=== PATIENT | female | born 1985 | race Caucasian/White ===

== ENCOUNTER 2017-07-05 15:27 | Emergency (ER) | payer BC ==
[~2017-07-05] VITALS: Ht 157.5 cm; Wt 56.5 kg
[~2017-07-05 15:27] MED LIST: CHLO10CA6 PO; CITA10TA84 PO; FAMO-96 PO; IBUP400T22 PO; LOPE2CAP PO; LORA-444 PO; LORA1TAB PO; OMEP40CA3 PO; ONDA4TAB35 PO; ONDA4TAB8 PO; RANI150T9 PO
[2017-07-05 15:30] VITALS: Ht 157.5 cm; Wt 56.5 kg
--- NOTE | 2017-07-05 21:13 | ERD ---
ER Documentation Chief Complaint Date/Time DATE: 07/05/17 TIME: 21:09 Chief Complaint heavy drinking x 1 week "doesn't feel good" HPI 31-year-old female presents to the ER for feeling shaky after she stopped drinking. Last drink was yesterday. She denies any nausea or vomiting currently. She says that usually when she goes to the ER for alcohol withdrawal as they put an IV in her and give her Ativan. She has had no fevers or chills. She is not having any pain currently ROS All systems reviewed and are negative except as per history of present illness. Medications Home Meds Active Scripts Citalopram Hydrobromide* (Citalopram Hydrobromide*) 10 Mg Tablet, 10 MG PO DAILY , #6 TAB Prov:RUFUS DIAZ 05/22/16 Ondansetron Hcl* (Zofran* ODT) 4 mg -ODT Tab.disper, 4 MG PO Q6 Y for NAUSEA AND /OR VOMITING, #10 TAB Prov:RUFUS DIAZ 05/22/16 Ranitidine Hcl* (Zantac*) 150 Mg Tablet, 150 MG PO BID Y for EPIGASTRIC PAIN, # 30 TAB Prov:RUFUS DIAZ 05/22/16 Lorazepam* (Lorazepam*) 1 Mg Tablet, 1 MG PO Q8H Y for ANXIETY, #10 TAB Prov:DEVYN CABAN DO 05/12/16 Omeprazole* (Prilosec*) 40 Mg Capsule.dr, 40 MG PO DAILY, #30 CAP Prov:VINCENT CABANSTYADIRA Thakkar DO 05/12/16 Ondansetron Hcl* (Zofran* ODT) 4 mg -ODT Tab.disper, 4 MG PO Q6 Y for NAUSEA AND /OR VOMITING, #10 TAB Prov:VINCENT CABANSTYADIRA Thakkar DO 05/12/16 Ondansetron Hcl* (Zofran*) 4 Mg Tablet, 4 MG PO Q6H for NAUSEA AND/OR VOMITING, #30 TAB Prov:GABRIELLE MANRIQUEZ PA-C 04/26/16 Ibuprofen* (Motrin*) 400 Mg Tab, 400 MG PO Q6, #30 TAB Prov:JONATHON BRITT PA-C 04/05/16 Famotidine* (Pepcid*) 20 Mg Tablet, 20 MG PO BID for 4 Days, TAB Prov:JONATHON BRITT PA-C 04/05/16 Ondansetron Hcl* (Zofran* ODT) 4 mg -ODT Tab.disper, 4 MG PO Q6 Y for NAUSEA AND /OR VOMITING, #10 TAB Prov:JONATHON BRITT PA-C 04/05/16 Lorazepam* (Lorazepam*) 1 Mg Tablet, 1 MG PO Q8H Y for ANXIETY, #10 TAB Prov:DEVYN CABAN DO 03/11/16 Ranitidine Hcl* (Zantac*) 150 Mg Tablet, 150 MG PO BID, #60 TAB Prov:ABIGAIL JONES 03/09/16 Chlordiazepoxide* (Chlordiazepoxide*) 10 Mg Capsule, 10 MG PO TID, #60 CAP Prov:ABIGAIL JONES 03/09/16 Loperamide Hcl* (Imodium*) 2 Mg Capsule, 2 MG PO .AFTER EA LOOSE BM Y for DIARRHEA, #10 TAB Prov:IHSAN WOMACK MD 02/21/16 Ondansetron Hcl* (Zofran* ODT) 4 mg -ODT Tab.disper, 4 MG PO Q6 Y for NAUSEA AND /OR VOMITING, #10 TAB Prov:IHSAN WOMACK MD 02/21/16 Reported Medications Lorazepam* (Ativan*) 2 Mg Tablet, 2 MG PO Q8 Y for AGITATION/ANXIETY, TAB 02/20/16 Allergies Allergies: Coded Allergies: hydrocodone bit (Verified Allergy, Severe, 02/20/16) morphine (Verified Allergy, Intermediate, SOB , RASH, 02/20/16) PMhx/Soc History of Surgery: No Anesthesia Reaction: No Hx Neurological Disorder: No Hx Respiratory Disorders: No Hx Cardiac Disorders: No Hx Psychiatric Problems: Yes (anxiety, panic attack) Hx Miscellaneous Medical Probl: Yes (CHRONIC ALCOHOLIC PANCREATITIS, ovarian cyst) Hx Alcohol Use: No Hx Substance Use: No Hx Tobacco Use: Yes Physical Exam Vitals Vital Signs Date Time Temp Pulse Resp B/P Pulse Ox O2 Delivery O2 Flow Rate FiO2 07/05/17 15:30 97.9 114 22 130/82 97 Physical Exam Const: [] No distress, sitting comfortably in the chair, calm Head: Atraumatic Eyes: Normal Conjunctiva ENT: Normal External Ears, Nose and Mouth. Neck: Full range of motion..~ No meningismus. Resp: Clear to auscultation bilaterally Cardio: Regular rate and rhythm, no murmurs Skin: No petechiae or rashes Ext: No cyanosis, or edema Neur: Awake and alert and oriented 3, no focal deficits Psych: Normal Mood and Affect Procedures/MDM Very well-appearing young adult female comes emergency room with expectations of IV Ativan. She was observed in the emergency room for 5-1/2 hours without signs of shakiness, no vomiting. I did spend time speaking with her about alcohol cessation. Sugar that she should get IV Ativan because she is going to ERs and gotten before including this ER. Explained to her that we save IV narcotics for patients in need of them. She currently has stable vital signs, no shaking, no hallucinations. I feel safe discharging her with instructions for primary care follow-up. I am also providing outpatient detox facilities. Departure Diagnosis: Primary Impression: Alcoholic intoxication Condition: Stable Patient Instructions: Alcohol Intoxication Referrals: GAVI FRANCISCO (PCP) Additional Instructions: Call your primary care doctor TOMORROW for an appointment during the next 1-2 days.See the doctor sooner or return here if your condition worsens before your appointment time. SANDI JETER DO Jul 05, 2017 21:13
[2017-07-05 21:14] VITALS: BP 119/82; PULSE 99; RESP 20
== END 2017-07-05 21:18 | disposition home or self-care (01) ==
LOC: E/R 15:27
DX: F10.129 Alcohol abuse with intoxication, unspecified (principal); Z87.891 Personal history of nicotine dependence
CPT/HCPCS: 99282

== ENCOUNTER 2017-07-21 13:33 | Emergency (ER) | payer BC ==
[~2017-07-21] VITALS: Ht 154.9 cm; Wt 55.5 kg
[2017-07-21 13:35] VITALS: Ht 154.9 cm; Wt 55.5 kg
[2017-07-21] MEDS ORDERED: ONDANSETRON 4 MG INJ IV STA (15:02)
[2017-07-21] MEDS ORDERED: FAMOTIDINE 20 MG INJ IV STA (15:02)
[2017-07-21] MEDS ORDERED: SOD CHLORIDE 0.9% 1,000 ML IV STA (15:02)
--- NOTE | 2017-07-21 15:27 | ERD ---
ER Documentation Chief Complaint Date/Time DATE: 07/21/17 TIME: 15:24 Chief Complaint shaky , chest pressure ,had been drinking x 5 days HPI Patient is a 32-year-old female with history of alcohol abuse who reports chest pain in the setting of heavy drinking for the last 5 days. She states that the pain began yesterday. It was gradual onset, sharp, substernal in the lower sternal region. It radiates to her back. She denies shortness of breath. She denies cough. She denies fever. She reports vomiting several times without blood or coffee-ground emesis. She denies dark stools. She denies abdominal pain. ROS All systems reviewed and are negative except as per history of present illness. Medications Home Meds Active Scripts Famotidine* (Pepcid*) 20 Mg Tablet, 20 MG PO BID for 4 Days, TAB Prov:LINDSAY HAHN MD 07/21/17 Reported Medications Lorazepam* (Lorazepam*) 1 Mg Tablet, 1 MG PO BID Y for ANXIETY, #30 TAB LAST TIME PATIENT TAKE HER MEDS A WEEK AGO 07/21/17 Discontinued Reported Medications Lorazepam* (Ativan*) 2 Mg Tablet, 2 MG PO Q8 Y for AGITATION/ANXIETY, TAB 02/20/16 Discontinued Scripts Citalopram Hydrobromide* (Citalopram Hydrobromide*) 10 Mg Tablet, 10 MG PO DAILY , #6 TAB Prov:RUFUS DIAZ 05/22/16 Ondansetron Hcl* (Zofran* ODT) 4 mg -ODT Tab.disper, 4 MG PO Q6 Y for NAUSEA AND /OR VOMITING, #10 TAB Prov:RUFUS DIAZ 05/22/16 Ranitidine Hcl* (Zantac*) 150 Mg Tablet, 150 MG PO BID Y for EPIGASTRIC PAIN, # 30 TAB Prov:RUFUS DIAZ 05/22/16 Lorazepam* (Lorazepam*) 1 Mg Tablet, 1 MG PO Q8H Y for ANXIETY, #10 TAB Prov:DEVYN CABAN DO 05/12/16 Omeprazole* (Prilosec*) 40 Mg Capsule.dr, 40 MG PO DAILY, #30 CAP Prov:DEVYN CABAN DO 05/12/16 Ondansetron Hcl* (Zofran* ODT) 4 mg -ODT Tab.disper, 4 MG PO Q6 Y for NAUSEA AND /OR VOMITING, #10 TAB Prov:DEVYN CABAN DO 05/12/16 Ondansetron Hcl* (Zofran*) 4 Mg Tablet, 4 MG PO Q6H for NAUSEA AND/OR VOMITING, #30 TAB Prov:GABIRELLE MANRIQUEZ PA-C 04/26/16 Ibuprofen* (Motrin*) 400 Mg Tab, 400 MG PO Q6, #30 TAB Prov:JONATHON BRITT PA-C 04/05/16 Famotidine* (Pepcid*) 20 Mg Tablet, 20 MG PO BID for 4 Days, TAB Prov:JONATHON BRITT PA-C 04/05/16 Ondansetron Hcl* (Zofran* ODT) 4 mg -ODT Tab.disper, 4 MG PO Q6 Y for NAUSEA AND /OR VOMITING, #10 TAB Prov:JONATHON BRITT PA-C 04/05/16 Lorazepam* (Lorazepam*) 1 Mg Tablet, 1 MG PO Q8H Y for ANXIETY, #10 TAB Prov:DEVYN CABAN DO 03/11/16 Ranitidine Hcl* (Zantac*) 150 Mg Tablet, 150 MG PO BID, #60 TAB Prov:ABIGAIL JONES 03/09/16 Chlordiazepoxide* (Chlordiazepoxide*) 10 Mg Capsule, 10 MG PO TID, #60 CAP Prov:ABIGAIL JONES 03/09/16 Loperamide Hcl* (Imodium*) 2 Mg Capsule, 2 MG PO .AFTER EA LOOSE BM Y for DIARRHEA, #10 TAB Prov:IHSAN WOMACK MD 02/21/16 Ondansetron Hcl* (Zofran* ODT) 4 mg -ODT Tab.disper, 4 MG PO Q6 Y for NAUSEA AND /OR VOMITING, #10 TAB Prov:IHSAN WOMACK MD 02/21/16 Allergies Allergies: Coded Allergies: hydrocodone bit (Verified Allergy, Severe, 07/21/17) morphine (Verified Allergy, Intermediate, SOB , RASH, 07/21/17) PMhx/Soc Past medical history: Alcohol abuse Past surgical history: None Social history: Drinks alcohol heavily, denies tobacco or illicit drugs History of Surgery: No Anesthesia Reaction: No Hx Neurological Disorder: No Hx Respiratory Disorders: No Hx Cardiac Disorders: No Hx Psychiatric Problems: Yes (anxiety, panic attack) Hx Miscellaneous Medical Probl: Yes (CHRONIC ALCOHOLIC PANCREATITIS, ovarian cyst) Hx Alcohol Use: Yes (daily) Hx Substance Use: No Hx Tobacco Use: Yes Smoking Status: Never smoker FmHx Family History: No coronary disease, No diabetes Physical Exam Vitals Vital Signs Date Time Temp Pulse Resp B/P Pulse Ox O2 Delivery O2 Flow Rate FiO2 07/21/17 18:58 97.9 75 19 125/69 100 Room Air 07/21/17 15:10 98.1 83 16 106/89 97 Room Air 07/21/17 13:35 98.1 87 18 128/86 99 Physical Exam Const: Alert, no acute distress Head: Atraumatic Eyes: Normal Conjunctiva, no pallor, no icterus ENT: Normal External Ears, Nose and Mouth. Because membranes moist Neck: Full range of motion..~ No meningismus. No JVD Resp: Clear to auscultation bilaterally, no wheezes, no rales Cardio: Regular rate and rhythm, no murmurs. Left lower sternal chest wall tenderness. Abd: Soft, non tender, non distended. No guarding or rebound Skin: No petechiae or rashes Back: No midline or flank tenderness Ext: No cyanosis, or edema Neur: Awake and alert, cranial nerves II through XII intact bilaterally, strength and sensation full in 4 extremities. Psych: Normal Mood and Affect Result Diagram: 07/21/17 1530 07/21/17 1530 Results 24 hrs Laboratory Tests Test 07/21/17 15:20 07/21/17 15:30 Urine Color COLORLESS Urine Clarity CLEAR Urine pH 6.0 Urine Specific Petal 1.002 Urine Ketones NEGATIVEmg/dL Urine Nitrite NEGATIVEmg/dL Urine Bilirubin NEGATIVEmg/dL Urine Urobilinogen NEGATIVEmg/dL Urine Leukocyte Esterase NEGATIVELeu/ul Urine Hemoglobin NEGATIVEmg/dL Urine Glucose NEGATIVEmg/dL Urine Total Protein NEGATIVEmg/dl Urine Test NEGATIVE White Blood Count 8.710^3/ul Red Blood Count 5.1710^6/ul Hemoglobin 12.7g/dl Hematocrit 40.3% Mean Corpuscular Volume 77.9fl Mean Corpuscular Hemoglobin 24.6pg Mean Corpuscular Hemoglobin Concent 31.5g/dl Red Cell Distribution Width 18.6% Platelet Count 28958^3/UL Mean Platelet Volume 9.9fl Neutrophils % 54.6% Lymphocytes % 37.5% Monocytes % 6.0% Eosinophils % 0.7% Basophils % 0.6% Nucleated Red Blood Cells % 0.0/100WBC Neutrophils # (Manual) 4.810^3/ul Lymphocytes # 3.310^3/ul Monocytes # 0.510^3/ul Eosinophils # 0.110^3/ul Basophils # 0.110^3/ul Nucleated Red Blood Cells # 0.010^3/ul Sodium Level 148mmol/L Potassium Level 3.9mmol/L Chloride Level 102mmol/L Carbon Dioxide Level 25mmol/L Anion Gap 25 Blood Urea Nitrogen 5mg/dl Creatinine 0.66mg/dl Glucose Level 94mg/dl Calcium Level 9.1mg/dl Total Bilirubin 0.1mg/dl Direct Bilirubin 0.00mg/dl Indirect Bilirubin 0.1mg/dl Aspartate Amino Transf (AST/SGOT) 31IU/L Alanine Aminotransferase (ALT/SGPT) 24IU/L Alkaline Phosphatase 103IU/L Troponin I < 0.012ng/ml Total Protein 8.1g/dl Albumin 4.4g/dl Globulin 3.70g/dl Albumin/Globulin Ratio 1.18 Lipase 134U/L Current Medications Medications (Trade) Dose Ordered Sig/Dayanna Route PRN Reason Start Time Stop Time Status Last Admin Dose Admin Sodium Chloride (NS) 1,000 ml @ 1,000 mls/hr Q1H STAT IV 07/21/17 15:02 07/21/17 16:01 DC 07/21/17 15:17 Ondansetron HCl (Zofran Inj) 4 mg ONCE STAT IV 07/21/17 15:02 07/21/17 15:12 DC 07/21/17 15:16 Famotidine (Pepcid Iv) 20 mg ONCE STAT IV 07/21/17 15:02 07/21/17 15:12 DC 07/21/17 15:16 Lorazepam (Ativan) 1 mg ONCE ONCE IV 07/21/17 16:00 07/21/17 16:01 DC 07/21/17 15:57 Procedures/MDM EKG read by me: Time 1502, rate 72 Rhythm: Normal sinus Pope: Normal Intervals: Normal ST-T waves: no ischemic changes Ectopy: No Q-waves: V2 only Impression: Possible prior septal infarct versus lead placement. No ischemia or arrhythmia. MDM: Patient is a 32-year-old female who presents with sharp chest pain in the setting of recent alcohol binge. She also complains of several episodes of vomiting. She has benign labs, EKG and chest x-ray. There is no evidence for coronary ischemia. There are no features that are concerning for pulmonary embolism or aortic dissection. The patient does not have symptoms that are concerning for perforating ulcer or Boerhaave syndrome. She was given Ativan, IV fluids, and Pepcid and on reassessment her symptoms had largely resolved. I will discharge her with a prescription for Pepcid for possible alcoholic gastritis. I advised her on return precautions and the need to avoid alcohol. Departure Diagnosis: Primary Impression: Alcohol abuse Additional Impressions: Non-cardiac chest pain Nausea and vomiting Vomiting type: unspecified Vomiting Intractability: non-intractable Qualified Code: R11.2 - Non-intractable vomiting with nausea, unspecified vomiting type Condition: LINDSAY Sanders MD Jul 21, 2017 15:22
[2017-07-21 15:44] LABS: BASOPHIL # 0.1 10^3/ul (0.0-0.1); BASOPHILS % 0.6 % (0.0-2.0); EOSINOPHILS # 0.1 10^3/ul (0.0-0.5); EOSINOPHILS % 0.7 % (0.0-7.0); HEMATOCRIT 40.3 % (37.0-47.0); HEMOGLOBIN 12.7 g/dl (12.0-16.0); LYMPHOCYTES # 3.3 10^3/ul (0.8-2.9); LYMPHOCYTES % 37.5 % (15.0-51.0); MEAN CORPUSCULAR HEMOGLOBIN 24.6 pg (29.0-33.0); MEAN CORPUSCULAR HGB CONC 31.5 g/dl (32.0-37.0); MEAN CORPUSCULAR VOLUME 77.9 fl (82.0-101.0); MEAN PLATELET VOLUME 9.9 fl (7.4-10.4); MONOCYTE # 0.5 10^3/ul (0.3-0.9); NEUTROPHILS % 54.6 % (39.0-77.0); PLATELET COUNT 410 10^3/UL (140-415); RED BLOOD COUNT 5.17 10^6/ul (4.20-5.40); RED CELL DISTRIBUTION WIDTH 18.6 % (11.5-14.5); WHITE BLOOD COUNT 8.7 10^3/ul (4.8-10.8)
[2017-07-21 15:48] LABS: ADD UMIC NO; UR ASCORBIC ACID NEGATIVE (NEGATIVE); UR BILIRUBIN (Dip) NEGATIVE (NEGATIVE); UR BLOOD (Dip) NEGATIVE (NEGATIVE); UR CLARITY CLEAR (CLEAR); UR COLOR COLORLESS (YELLOW); UR GLUCOSE (Dip) NEGATIVE (NEGATIVE); UR KETONES (Dip) NEGATIVE (NEGATIVE); UR LEUKOCYTE ESTERASE (Dip) NEGATIVE Leu/ul (NEGATIVE); UR NITRITE (Dip) NEGATIVE (NEGATIVE); UR SPECIFIC GRAVITY (Dip) 1.002 (1.003-1.030); UR TOTAL PROTEIN (Dip) NEGATIVE (NEGATIVE); UR UROBILINOGEN (Dip) NEGATIVE (NEGATIVE)
[2017-07-21] MEDS ORDERED: LORAZEPAM 2 MG INJ IV ONE (16:00)
[2017-07-21 16:31] LABS: ALANINE AMINOTRANSFERASE 24 IU/L (13-69); ALBUMIN 4.4 g/dl (3.3-4.9); ALBUMIN/GLOBULIN RATIO 1.18; ALKALINE PHOSPHATASE 103 IU/L (42-121); ANION GAP 25 (8-16); ASPARTATE AMINO TRANSFERASE 31 IU/L (15-46); BILIRUBIN,INDIRECT 0.1 mg/dl (0-1.1); BILIRUBIN,TOTAL 0.1 mg/dl (0.2-1.3); BLOOD UREA NITROGEN 5 mg/dl (7-20); CARBON DIOXIDE 25 mmol/L (21-31); CHLORIDE 102 mmol/L (97-110); CREATININE 0.66 mg/dl (0.44-1.00); GLUCOSE 94 mg/dl (70-220); POTASSIUM 3.9 mmol/L (3.5-5.1); SODIUM 148 mmol/L (135-144); TOTAL PROTEIN 8.1 g/dl (6.1-8.1)
--- NOTE | 2017-07-21 16:37 | RADRPT ---
PROCEDURE: Chest Radiograph. CLINICAL INDICATION: Abdominal pain TECHNIQUE: Single frontal chest radiograph. COMPARISON: None available FINDINGS: The cardiomediastinal silhouette is within normal limits. No infiltrate or effusion is seen. Th e bones are intact. IMPRESSION: 1. Unremarkable chest radiograph. RPTAT: KK .Alphonso Henson MD, Date Time Electronically viewed and signed by .Alphonso Henson MD, on 07/21/2017 16:36 .B/
[2017-07-21 16:44] LABS: TROPONIN-I < 0.012 ng/ml (0.00-0.12)
[2017-07-21] MEDS ORDERED: LORA1TAB PO (16:47)
[2017-07-21 17:33] LABS: CALCIUM 9.1 mg/dl (8.4-10.2)
[2017-07-21] MEDS ORDERED: FAMO-96 PO (18:03)
[2017-07-21 18:58] VITALS: BP 125/69; PULSE 75; RESP 19; TEMP 97.9
== END 2017-07-21 18:59 | disposition home or self-care (01) ==
LOC: E/R 13:33
DX: F10.10 Alcohol abuse, uncomplicated (principal); R11.2 Nausea with vomiting, unspecified; Z87.891 Personal history of nicotine dependence
CPT/HCPCS: 36415; 71010; 80053; 81003; 83690; 84484; 84703; 85025; 93005; 96374; 96375; 99285; J2060; J2405; J7030; Z7610

== ENCOUNTER 2017-08-11 09:32 | Emergency (ER) | payer BC ==
[~2017-08-11] VITALS: Ht 149.9 cm; Wt 55.5 kg
[~2017-08-11 09:32] MED LIST changes: -CHLO10CA6 PO; -CITA10TA84 PO; -IBUP400T22 PO; -LOPE2CAP PO; -LORA-444 PO; -OMEP40CA3 PO; -ONDA4TAB35 PO; -ONDA4TAB8 PO; -RANI150T9 PO
[2017-08-11 09:36] VITALS: Ht 149.9 cm; Wt 55.5 kg
[2017-08-11] MEDS ORDERED: FAMOTIDINE 20 MG INJ IV STA (10:55)
[2017-08-11] MEDS ORDERED: ONDANSETRON 4 MG INJ IV STA (10:55)
[2017-08-11] MEDS ORDERED: DEXTROSE 5% 1,000 ML IV ONE (11:00)
[2017-08-11] MEDS ORDERED: LORAZEPAM 2 MG INJ IV ONE ×2 (11:00→12:00)
--- NOTE | 2017-08-11 11:01 | ERD ---
ER Documentation Chief Complaint Date/Time DATE: 08/11/17 TIME: 10:58 Chief Complaint mid chest pain radiates to the back , vomitting x 5 days HPI 32-year-old female history of alcohol abuse, relapse comes in with chest pain going to her back, nausea, vomiting for the past 4 days after an episode of binge drinking. She has a history of alcohol abuse, states that she went to rehab and when she left she she began drinking again and states that her last drink was yesterday. She has a prescription for Ativan but she states she has not been taking this so far. ROS All systems reviewed and are negative except as per history of present illness. Medications Home Meds Active Scripts Ondansetron (Ondansetron Odt) 4 Mg Tab.rapdis, 4 MG PO Q6H Y for NAUSEA AND/OR VOMITING, #10 TAB Prov:SHE JOHNSON PA-C 08/11/17 Ranitidine Hcl* (Zantac*) 150 Mg Tablet, 150 MG PO BID Y for EPIGASTRIC PAIN, # 30 TAB Prov:SHE JOHNSON PA-C 08/11/17 Famotidine* (Pepcid*) 20 Mg Tablet, 20 MG PO BID for 4 Days, TAB Prov:LINDSAY KING MD 07/21/17 Reported Medications Lorazepam* (Lorazepam*) 1 Mg Tablet, 1 MG PO BID Y for ANXIETY, #30 TAB LAST TIME PATIENT TAKE HER MEDS A WEEK AGO 07/21/17 Allergies Allergies: Coded Allergies: hydrocodone bit (Verified Allergy, Severe, 07/21/17) morphine (Verified Allergy, Intermediate, SOB , RASH, 07/21/17) PMhx/Soc History of Surgery: No Anesthesia Reaction: No Hx Neurological Disorder: No Hx Respiratory Disorders: No Hx Cardiac Disorders: No Hx Psychiatric Problems: Yes (anxiety, panic attack) Hx Miscellaneous Medical Probl: Yes (CHRONIC ALCOHOLIC PANCREATITIS, ovarian cyst) Hx Alcohol Use: Yes (daily) Hx Substance Use: No Hx Tobacco Use: Yes Physical Exam Vitals Vital Signs Date Time Temp Pulse Resp B/P Pulse Ox O2 Delivery O2 Flow Rate FiO2 08/11/17 13:31 110 18 113/76 99 Room Air 08/11/17 09:36 98.2 107 19 134/91 98 Physical Exam General: Well-developed, well-nourished. The patient appears in no acute distress. HEENT: Head is normocephalic, atraumatic. No scleral icterus Neck: Supple. Nontender. Lungs: Clear to auscultation. Normal air movement. Heart: Regular rate and rhythm. S1 and S2 are normal. No murmurs, gallops, or rubs. Abdomen: Soft, nontender, nondistended. Bowel sounds are normoactive. Extremities: No clubbing or cyanosis. Normal pulses. Moving extremities x 4. No weakness. Neurologic: Alert and oriented 3. No focal deficits. Skin: Normal turgor. No rash or lesions. Result Diagram: 08/11/17 1107 08/11/17 1107 Results 24 hrs Laboratory Tests Test 08/11/17 11:07 White Blood Count 9.910^3/ul Red Blood Count 5.1010^6/ul Hemoglobin 12.9g/dl Hematocrit 39.8% Mean Corpuscular Volume 78.0fl Mean Corpuscular Hemoglobin 25.3pg Mean Corpuscular Hemoglobin Concent 32.4g/dl Red Cell Distribution Width 14.7% Platelet Count 79197^3/UL Mean Platelet Volume 10.0fl Neutrophils % 62.2% Lymphocytes % 28.5% Monocytes % 8.0% Eosinophils % 0.3% Basophils % 0.7% Nucleated Red Blood Cells % 0.0/100WBC Neutrophils # 6.210^3/ul Lymphocytes # 2.810^3/ul Monocytes # 0.810^3/ul Eosinophils # 0.010^3/ul Basophils # 0.110^3/ul Nucleated Red Blood Cells # 0.010^3/ul Sodium Level 141mmol/L Potassium Level 4.5mmol/L Chloride Level 101mmol/L Carbon Dioxide Level 29mmol/L Anion Gap 16 Blood Urea Nitrogen 10mg/dl Creatinine 0.66mg/dl Glucose Level 110mg/dl Calcium Level 9.3mg/dl Total Bilirubin 0.4mg/dl Direct Bilirubin 0.00mg/dl Indirect Bilirubin 0.4mg/dl Aspartate Amino Transf (AST/SGOT) 33IU/L Alanine Aminotransferase (ALT/SGPT) 26IU/L Alkaline Phosphatase 95IU/L Troponin I < 0.012ng/ml Total Protein 7.3g/dl Albumin 4.2g/dl Globulin 3.10g/dl Albumin/Globulin Ratio 1.35 Lipase 114U/L Current Medications Medications (Trade) Dose Ordered Sig/Dayanna Route PRN Reason Start Time Stop Time Status Last Admin Dose Admin Ondansetron HCl (Zofran Inj) 4 mg ONCE STAT IV 08/11/17 10:55 08/11/17 10:56 DC 08/11/17 11:25 Famotidine (Pepcid Iv) 20 mg ONCE STAT IV 08/11/17 10:55 08/11/17 10:56 DC 08/11/17 11:22 Lorazepam 1 mg 1 mg ONCE ONCE IV 08/11/17 11:00 08/11/17 11:01 DC 08/11/17 11:21 Dextrose (D5W) 1,000 ml @ 1,000 mls/hr Q1H ONCE IV 08/11/17 11:00 08/11/17 11:59 DC 08/11/17 11:25 Lorazepam (Ativan) 1 mg ONCE ONCE IV 08/11/17 12:00 08/11/17 12:01 DC 08/11/17 12:18 urine preg: NEG Procedures/MDM 12-lead EKG(interpreted by supervising physician): Dr. King Rate/Rhythm: Normal Sinus Rhythm, rate of 80 QRS, ST, T-waves: No changes consistent w/ acute ischemia, no intervals, no dysrhythmias, no ectopy Impression: No evidence of ischemia or arrhythmia Medical decision makin-year-old female comes in with a four-day history of alcohol binging and she stopped drinking yesterday coming in with alcohol withdrawal. Patient was given Ativan intravenously, Pepcid, and Zofran and states she is feeling much better. All labs are normal, chest pain does not appear to be cardiac, troponin is negative. Patient will be sent home with ranitidine, Zofran, she states that she has Ativan which she may take as needed at home for the next 2 days. Departure Diagnosis: Primary Impression: Withdrawal symptoms, alcohol Additional Impression: Chest pain Condition: SHE Borrero PA-C Aug 11, 2017 11:01
[2017-08-11 11:25] LABS: BASOPHIL # 0.1 10^3/ul (0.0-0.1); BASOPHILS % 0.7 % (0.0-2.0); EOSINOPHILS % 0.3 % (0.0-7.0); HEMATOCRIT 39.8 % (37.0-47.0); HEMOGLOBIN 12.9 g/dl (12.0-16.0); LYMPHOCYTES # 2.8 10^3/ul (0.8-2.9); LYMPHOCYTES % 28.5 % (15.0-51.0); MEAN CORPUSCULAR HEMOGLOBIN 25.3 pg (29.0-33.0); MEAN CORPUSCULAR HGB CONC 32.4 g/dl (32.0-37.0); MONOCYTE # 0.8 10^3/ul (0.3-0.9); NEUTROPHIL # 6.2 10^3/ul (1.6-7.5); NEUTROPHILS % 62.2 % (39.0-77.0); PLATELET COUNT 367 10^3/UL (140-415); RED CELL DISTRIBUTION WIDTH 14.7 % (11.5-14.5); WHITE BLOOD COUNT 9.9 10^3/ul (4.8-10.8)
[2017-08-11 11:55] LABS: ALANINE AMINOTRANSFERASE 26 IU/L (13-69); ALBUMIN 4.2 g/dl (3.3-4.9); ALBUMIN/GLOBULIN RATIO 1.35; ALKALINE PHOSPHATASE 95 IU/L (42-121); ANION GAP 16 (8-16); ASPARTATE AMINO TRANSFERASE 33 IU/L (15-46); BILIRUBIN,INDIRECT 0.4 mg/dl (0-1.1); BILIRUBIN,TOTAL 0.4 mg/dl (0.2-1.3); BLOOD UREA NITROGEN 10 mg/dl (7-20); CALCIUM 9.3 mg/dl (8.4-10.2); CARBON DIOXIDE 29 mmol/L (21-31); CHLORIDE 101 mmol/L (97-110); CREATININE 0.66 mg/dl (0.44-1.00); GLUCOSE 110 mg/dl (70-220); POTASSIUM 4.5 mmol/L (3.5-5.1); SODIUM 141 mmol/L (135-144); TOTAL PROTEIN 7.3 g/dl (6.1-8.1)
[2017-08-11 12:09] LABS: TROPONIN-I < 0.012 ng/ml (0.00-0.12)
[2017-08-11] MEDS ORDERED: ONDA4TAB14 PO (13:28)
[2017-08-11] MEDS ORDERED: RANI150T9 PO (13:28)
[2017-08-11 13:31] VITALS: BP 113/76; PULSE 110; RESP 18
== END 2017-08-11 14:26 | disposition home or self-care (01) ==
LOC: FTE 09:32
DX: F10.230 Alcohol dependence with withdrawal, uncomplicated (principal); R11.2 Nausea with vomiting, unspecified; Z87.891 Personal history of nicotine dependence
CPT/HCPCS: 36415; 80053; 83690; 84484; 85025; 93005; 96361; 96374; 96375; 99284; J2060; J2405; J7070; Z7610

== ENCOUNTER 2017-09-02 07:11 | Emergency (ER) | payer BC ==
[~2017-09-02] VITALS: Wt 54.0 kg
[~2017-09-02 07:11] MED LIST changes: +ONDA4TAB14 PO; +RANI150T9 PO
[2017-09-02] MEDS ORDERED: ONDANSETRON 4 MG INJ IV STA (07:33)
[2017-09-02] MEDS ORDERED: SOD CHLORIDE 0.9% 1,000 ML IV STA (07:33)
[2017-09-02 07:56] LABS: BASOPHIL # 0.1 10^3/ul (0.0-0.1); BASOPHILS % 0.6 % (0.0-2.0); EOSINOPHILS % 0.1 % (0.0-7.0); HEMATOCRIT 43.4 % (37.0-47.0); HEMOGLOBIN 13.9 g/dl (12.0-16.0); LYMPHOCYTES # 3.2 10^3/ul (0.8-2.9); LYMPHOCYTES % 28.2 % (15.0-51.0); MEAN CORPUSCULAR VOLUME 77.9 fl (82.0-101.0); MONOCYTE # 0.8 10^3/ul (0.3-0.9); MONOCYTES % 6.8 % (0.0-11.0); NEUTROPHIL # 7.3 10^3/ul (1.6-7.5); PLATELET COUNT 523 10^3/UL (140-415); RED BLOOD COUNT 5.57 10^6/ul (4.20-5.40); RED CELL DISTRIBUTION WIDTH 13.2 % (11.5-14.5); WHITE BLOOD COUNT 11.4 10^3/ul (4.8-10.8)
[2017-09-02] MEDS ORDERED: LIDOCAINE/MYLANTA 40 ML BTL PO ONE (08:00)
[2017-09-02 08:08] LABS: ADD UMIC YES; UR ASCORBIC ACID NEGATIVE (NEGATIVE); UR BACTERIA FEW /HPF (NONE SEEN); UR BILIRUBIN (Dip) NEGATIVE (NEGATIVE); UR BLOOD (Dip) NEGATIVE (NEGATIVE); UR CLARITY SLIGHTLY CLOUDY (CLEAR); UR COLOR YELLOW (YELLOW); UR GLUCOSE (Dip) NEGATIVE (NEGATIVE); UR KETONES (Dip) TRACE mg/dL (NEGATIVE); UR LEUKOCYTE ESTERASE (Dip) TRACE Leu/ul (NEGATIVE); UR MUCUS MODERATE /HPF (NONE SEEN); UR NITRITE (Dip) NEGATIVE (NEGATIVE); UR RBC 2 /HPF (0-5); UR SPECIFIC GRAVITY (Dip) 1.028 (1.003-1.030); UR SQUAMOUS EPITHELIAL CELL MODERATE /HPF (FEW); UR TOTAL PROTEIN (Dip) 2+ mg/dl (NEGATIVE); UR UROBILINOGEN (Dip) NEGATIVE (NEGATIVE)
[2017-09-02 08:17] LABS: ALANINE AMINOTRANSFERASE 21 IU/L (13-69); ALBUMIN 4.7 g/dl (3.3-4.9); ALBUMIN/GLOBULIN RATIO 1.27; ALKALINE PHOSPHATASE 117 IU/L (42-121); ANION GAP 20 (8-16); ASPARTATE AMINO TRANSFERASE 22 IU/L (15-46); BILIRUBIN,INDIRECT 0.6 mg/dl (0-1.1); BILIRUBIN,TOTAL 0.6 mg/dl (0.2-1.3); BLOOD UREA NITROGEN 11 mg/dl (7-20); CALCIUM 9.1 mg/dl (8.4-10.2); CARBON DIOXIDE 29 mmol/L (21-31); CHLORIDE 93 mmol/L (97-110); CREATININE 0.69 mg/dl (0.44-1.00); GLUCOSE 147 mg/dl (70-220); POTASSIUM 4.1 mmol/L (3.5-5.1); SODIUM 138 mmol/L (135-144); TOTAL PROTEIN 8.4 g/dl (6.1-8.1)
[2017-09-02 08:31] LABS: TROPONIN-I < 0.012 ng/ml (0.00-0.12)
[2017-09-02] MEDS ORDERED: ANTA250 PO (08:42)
[2017-09-02] MEDS ORDERED: ONDA4TAB11 PO (08:42)
[2017-09-02] MEDS ORDERED: RANI150T9 PO (08:44)
[2017-09-02 08:54] VITALS: BP 124/93; PULSE 98; RESP 17
--- NOTE | 2017-09-02 08:57 | ERD ---
ER Documentation Chief Complaint Date/Time DATE: 09/02/17 TIME: 08:47 Chief Complaint ETOH INTAKE, STATES ALL DAY X5 DAYS, FAST HEART BEAT HPI This 32-year-old female is emergency room feeling palpitations. States that she has been drinking for 5 days. Has a history of alcohol abuse. Also states that she has some substernal central chest pain that feels like a sharp burning pain. Mild shortness of breath. Is also had nausea. Last drink was 5 hours ago. Patient has 4 children. Has never suffered from delirium tremens. ROS All systems reviewed and are negative except as per history of present illness. Medications Home Meds Active Scripts Ranitidine Hcl* (Zantac*) 150 Mg Tablet, 150 MG PO BID, #60 TAB Prov:CORONASANDI DO 09/02/17 Disulfiram (Antabuse) 250 Mg Tablet, 250 MG PO DAILY, #30 TAB Take when alcohol is out of your system completely in order to assist you goals of alcohol avoidance. Prov:SANDI JETER DO 09/02/17 Ondansetron (Zofran Odt) 4 Mg Tab.rapdis, 4 MG PO Q6, #10 Prov:CORONASANDI DO 09/02/17 Ondansetron (Ondansetron Odt) 4 Mg Tab.rapdis, 4 MG PO Q6H Y for NAUSEA AND/OR VOMITING, #10 TAB Prov:SHE JOHNSON PA-C 08/11/17 Ranitidine Hcl* (Zantac*) 150 Mg Tablet, 150 MG PO BID Y for EPIGASTRIC PAIN, # 30 TAB Prov:SHE JOHNSON PA-C 08/11/17 Famotidine* (Pepcid*) 20 Mg Tablet, 20 MG PO BID for 4 Days, TAB Prov:LINDSAY HAHN MD 07/21/17 Reported Medications Lorazepam* (Lorazepam*) 1 Mg Tablet, 1 MG PO BID Y for ANXIETY, #30 TAB LAST TIME PATIENT TAKE HER MEDS A WEEK AGO 07/21/17 Allergies Allergies: Coded Allergies: hydrocodone bit (Verified Allergy, Severe, 07/21/17) morphine (Verified Allergy, Intermediate, SOB , RASH, 07/21/17) PMhx/Soc History of Surgery: No Anesthesia Reaction: No Hx Neurological Disorder: No Hx Respiratory Disorders: No Hx Cardiac Disorders: No Hx Psychiatric Problems: Yes (anxiety, panic attack) Hx Miscellaneous Medical Probl: Yes (CHRONIC ALCOHOLIC PANCREATITIS, ovarian cyst) Hx Alcohol Use: Yes (daily) Hx Substance Use: No Hx Tobacco Use: Yes (2-3 cigarettes) Smoking Status: Current every day smoker Physical Exam Vitals Vital Signs Date Time Temp Pulse Resp B/P Pulse Ox O2 Delivery O2 Flow Rate FiO2 09/02/17 07:16 97.5 132 17 126/78 97 Physical Exam Const: [] No obvious distress. Head: Atraumatic Eyes: Normal Conjunctiva ENT: Normal External Ears, Nose and Mouth. Neck: Full range of motion..~ No meningismus. Resp: Clear to auscultation bilaterally Cardio: Regular tachycardia, no murmurs Abd: Soft, non tender, non distended. Normal bowel sounds Skin: No petechiae or rashes Back: No midline or flank tenderness Ext: No cyanosis, or edema Neur: Awake and alert and oriented 3, no focal deficits Psych: Normal Mood and Affect Result Diagram: 09/02/1718 09/02/1718 Results 24 hrs Laboratory Tests Test 09/02/17 07:18 09/02/17 07:48 White Blood Count 11.410^3/ul Red Blood Count 5.5710^6/ul Hemoglobin 13.9g/dl Hematocrit 43.4% Mean Corpuscular Volume 77.9fl Mean Corpuscular Hemoglobin 25.0pg Mean Corpuscular Hemoglobin Concent 32.0g/dl Red Cell Distribution Width 13.2% Platelet Count 92717^3/UL Mean Platelet Volume 10.0fl Neutrophils % 64.0% Lymphocytes % 28.2% Monocytes % 6.8% Eosinophils % 0.1% Basophils % 0.6% Nucleated Red Blood Cells % 0.0/100WBC Neutrophils # 7.310^3/ul Lymphocytes # 3.210^3/ul Monocytes # 0.810^3/ul Eosinophils # 0.010^3/ul Basophils # 0.110^3/ul Nucleated Red Blood Cells # 0.010^3/ul Sodium Level 138mmol/L Potassium Level 4.1mmol/L Chloride Level 93mmol/L Carbon Dioxide Level 29mmol/L Anion Gap 20 Blood Urea Nitrogen 11mg/dl Creatinine 0.69mg/dl Glucose Level 147mg/dl Calcium Level 9.1mg/dl Total Bilirubin 0.6mg/dl Direct Bilirubin 0.00mg/dl Indirect Bilirubin 0.6mg/dl Aspartate Amino Transf (AST/SGOT) 22IU/L Alanine Aminotransferase (ALT/SGPT) 21IU/L Alkaline Phosphatase 117IU/L Troponin I < 0.012ng/ml Total Protein 8.4g/dl Albumin 4.7g/dl Globulin 3.70g/dl Albumin/Globulin Ratio 1.27 Lipase 97U/L Urine Color YELLOW Urine Clarity SLIGHTLY CLOUDY Urine pH 5.0 Urine Specific [place] 1.028 Urine Ketones TRACEmg/dL Urine Nitrite NEGATIVEmg/dL Urine Bilirubin NEGATIVEmg/dL Urine Urobilinogen NEGATIVEmg/dL Urine Leukocyte Esterase TRACELeu/ul Urine Microscopic RBC 2/HPF Urine Microscopic WBC 2/HPF Urine Squamous Epithelial Cells MODERATE/HPF Urine Bacteria FEW/HPF Urine Mucus MODERATE/HPF Urine Hemoglobin NEGATIVEmg/dL Urine Glucose NEGATIVEmg/dL Urine Total Protein 2+mg/dl Current Medications Medications (Trade) Dose Ordered Sig/Dayanna Route PRN Reason Start Time Stop Time Status Last Admin Dose Admin Sodium Chloride (NS) 1,000 ml @ 1,000 mls/hr Q1H STAT IV 09/02/17 07:33 09/02/17 08:32 DC 09/02/17 07:57 Ondansetron HCl (Zofran Inj) 8 mg ONCE STAT IV 09/02/17 07:33 09/02/17 07:37 DC 09/02/17 08:05 Miscellaneous Medication (Gi Cocktail (2)) 40 ml ONCE ONCE PO 09/02/17 08:00 09/02/17 08:01 DC 09/02/17 08:05 Procedures/MDM Atypical chest pain after drinking alcohol last night. He was given a liter of fluid and prior to receiving it her cardia had resolved. Signs of cardiac ischemia. She was given Zofran IV. Is also given a GI cocktail which reduced her chest pain. Laboratories show no significant liver or metabolic abnormalities. No signs of infection. She is feeling better. I am going to discharge her with Zantac and Zofran. Also discharging her with Antabuse in order to help her with her goal of stopping drinking alcohol, especially as she has 4 children. Return precautions are given to the ER and primary care follow- up with instructions to obtain outpatient echocardiogram are given EKG interpretation: Sinus rhythm rate of 97, normal axis, no ST or T-wave changes concerning for acute ischemia. Slightly shortened ID at 108 ms. residential monitor interpretation: Normal sinus rhythm without arrhythmia Departure Diagnosis: Primary Impression: Dehydration Additional Impressions: Alcohol abuse Atypical chest pain Condition: Stable Patient Instructions: Nausea, Chest Pain, Noncardiac , Alcohol Abuse Referrals: COMMUNITY CLINICS YOU HAVE RECEIVED A MEDICAL SCREENING EXAM AND THE RESULTS INDICATE THAT YOU DO NOT HAVE A CONDITION THAT REQUIRES URGENT TREATMENT IN THE EMERGENCY DEPARTMENT. FURTHER EVALUATION AND TREATMENT OF YOUR CONDITION CAN WAIT UNTIL YOU ARE SEEN IN YOUR DOCTORS OFFICE WITHIN THE NEXT 1-2 DAYS. IT IS YOUR RESPONSIBILITY TO MAKE AN APPOINTMENT FOR FOL-UP CARE. IF YOU HAVE A PRIMARY DOCTOR --you should call your primary doctor and schedule an appointment IF YOU DO NOT HAVE A PRIMARY DOCTOR YOU CAN CALL OUR PHYSICIAN REFERRAL HOTLINE AT IF YOU CAN NOT AFFORD TO SEE A PHYSICIAN YOU CAN CHOSE FROM THE FOLLOWING [facility] [address] [facility]. [facility] [address] [facility] [address] [facility] [facility] [address]. [facility] [address] [facility]. [facility]. [address] Additional Instructions: Call your primary care doctor TOMORROW for an appointment during the next 2-3 days. Get a referral of an ECHOCARDIOGRAM in the next two weeks to check cardiac function. See the doctor sooner or return here if your condition worsens before your appointment time. SANDI JETER DO Sep 02, 2017 08:57
== END 2017-09-02 09:40 | disposition home or self-care (01) ==
LOC: E/R 07:11
DX: E86.0 Dehydration (principal); F10.10 Alcohol abuse, uncomplicated; R07.89 Other chest pain; F17.210 Nicotine dependence, cigarettes, uncomplicated
CPT/HCPCS: 36415; 80053; 81001; 83690; 84484; 85025; 93005; 96374; 99284; J2405; J7030; Z7610

== ENCOUNTER 2017-09-21 21:55 | Emergency (ER) | payer SELFPAY ==
[~2017-09-21 21:55] MED LIST changes: +ANTA250 PO; +ONDA4TAB11 PO
== END 2017-09-21 23:40 | disposition left against medical advice (07) ==
LOC: E/R 21:55
DX: Z53.21 Procedure and treatment not carried out due to patient leaving prior to being seen by health care provider (principal)

== ENCOUNTER 2017-09-22 05:25 | Emergency (ER) | payer BC ==
[~2017-09-22] VITALS: Ht 157.5 cm; Wt 56.0 kg
[2017-09-22 05:32] VITALS: Ht 157.5 cm; Wt 56.0 kg
[2017-09-22] MEDS ORDERED: LORAZEPAM 1 MG TAB PO ONE (06:30)
--- NOTE | 2017-09-22 07:21 | ERD ---
ER Documentation Chief Complaint Chief Complaint Pt has been drinking x 5 days, last drink 09/21/17. "I want IV and ativan" HPI Patient is a 32-year-old female with a history of panic and anxiety who presents saying that she needs IV fluids and Ativan. She said that she was drinking for the past 5 days. She says that she drinks beer only. She says that she ran out of Ativan at home. She said that her last drink was at 9 PM last night. Upon review of old medical record she has multiple visits to the ER for various complaints. She says that her primary doctor is a Dr. Devi. ROS All systems reviewed and are negative except as per history of present illness. Medications Home Meds Active Scripts Ondansetron (Zofran Odt) 4 Mg Tab.rapdis, 4 MG PO Q6, #10 Prov:SANDI JETER DO 09/02/17 Famotidine* (Pepcid*) 20 Mg Tablet, 20 MG PO BID for 4 Days, TAB Prov:LINDSAY HAHN MD 07/21/17 Reported Medications Lorazepam* (Lorazepam*) 1 Mg Tablet, 1 MG PO BID Y for ANXIETY, #30 TAB LAST TIME PATIENT TAKE HER MEDS A WEEK AGO 07/21/17 Discontinued Scripts Ranitidine Hcl* (Zantac*) 150 Mg Tablet, 150 MG PO BID, #60 TAB Prov:SANDI JETER DO 09/02/17 Disulfiram (Antabuse) 250 Mg Tablet, 250 MG PO DAILY, #30 TAB Take when alcohol is out of your system completely in order to assist you goals of alcohol avoidance. Prov:SANDI JETER DO 09/02/17 Ondansetron (Ondansetron Odt) 4 Mg Tab.rapdis, 4 MG PO Q6H Y for NAUSEA AND/OR VOMITING, #10 TAB Prov:SHE JOHNSON PA-C 08/11/17 Ranitidine Hcl* (Zantac*) 150 Mg Tablet, 150 MG PO BID Y for EPIGASTRIC PAIN, # 30 TAB Prov:SHE JOHNSON PA-C 08/11/17 Allergies Allergies: Coded Allergies: hydrocodone bit (Verified Allergy, Severe, 09/22/17) morphine (Verified Allergy, Intermediate, SOB , RASH, 09/22/17) PMhx/Soc History of Surgery: No Anesthesia Reaction: No Hx Neurological Disorder: No Hx Respiratory Disorders: No Hx Cardiac Disorders: No Hx Psychiatric Problems: Yes (anxiety, panic attack,ETOH abuse) Hx Miscellaneous Medical Probl: Yes (CHRONIC ALCOHOLIC PANCREATITIS, ovarian cyst) Hx Alcohol Use: Yes (daily,last used this morning) Hx Substance Use: No Hx Tobacco Use: Yes (2-3 cigarettes) Smoking Status: Current every day smoker FmHx Family History: diabetes Physical Exam Vitals Vital Signs Date Time Temp Pulse Resp B/P Pulse Ox O2 Delivery O2 Flow Rate FiO2 09/22/17 05:32 98.1 96 18 122/85 98 Physical Exam Const: No acute distress Head: Atraumatic Eyes: Normal Conjunctiva ENT: Normal External Ears, Nose and Mouth. Neck: Full range of motion..~ No meningismus. Resp: Clear to auscultation bilaterally Cardio: Regular rate and rhythm, no murmurs Abd: Soft, non tender, non distended. Normal bowel sounds Skin: No petechiae or rashes Back: No midline or flank tenderness Ext: No cyanosis, or edema Neur: Awake and alert, no tremors Psych: Normal Mood and Affect Results 24 hrs Current Medications Medications (Trade) Dose Ordered Sig/Dayanna Route PRN Reason Start Time Stop Time Status Last Admin Dose Admin Lorazepam (Ativan) 1 mg ONCE ONCE PO 09/22/17 06:30 09/22/17 06:30 DC 09/22/17 06:21 Procedures/MDM Patient is a 32-year-old female who presents with symptoms of alcohol withdrawal. Her vital signs are normal and there is no sign of acute delirium tremens at this time. I told her that we will not give her IV fluids for IV Ativan in this case. She was offered Ativan 1 mg by mouth but I would not give her refills of this medication as it is a controlled substance and I do believe there is an element of abuse here given her multiple visits to the emergency department. The patient was instructed to follow-up with outpatient detox facilities and I did provide a list for her. The patient can return for any worsening symptoms. She is not in acute delirium tremens at this time. She does not require further workup or admission to the hospital at this time. Departure Diagnosis: Primary Impression: Alcohol withdrawal syndrome Complication of substance-induced condition: uncomplicated Qualified Code: F10.230 - Alcohol withdrawal syndrome without complication Condition: Fair Patient Instructions: Alcohol Withdrawal Referrals: [facility] Abuse [facility] Additional Instructions: FOLLOW UP WITH YOUR PRIMARY CARE PHYSICIAN TOMORROW.Return to this facility if you are not improving as expected. BROWN MIKE MD Sep 22, 2017 07:21
== END 2017-09-22 06:29 | disposition left against medical advice (07) ==
LOC: E/R 05:25
DX: F10.230 Alcohol dependence with withdrawal, uncomplicated (principal); F17.210 Nicotine dependence, cigarettes, uncomplicated
CPT/HCPCS: 99283; Z7610

== ENCOUNTER 2017-09-28 20:59 | Emergency (ER) | payer BC ==
[~2017-09-28] VITALS: Ht 149.9 cm; Wt 53.5 kg
[~2017-09-28 20:59] MED LIST changes: -ANTA250 PO; -ONDA4TAB14 PO; -RANI150T9 PO
[2017-09-28 21:06] VITALS: Ht 149.9 cm; Wt 53.5 kg
[2017-09-28] MEDS ORDERED: FAMOTIDINE 20 MG INJ IV STA (23:34)
[2017-09-28] MEDS ORDERED: ONDANSETRON 4 MG INJ IV STA (23:34)
[2017-09-28] MEDS ORDERED: SOD CHLORIDE 0.9% 1,000 ML IV STA (23:34)
[2017-09-29] MEDS ORDERED: LORAZEPAM 2 MG INJ IV ONE
--- NOTE | 2017-09-29 00:48 | RADRPT ---
PROCEDURE: Thoracic Spine. CLINICAL INDICATION: 32 years of age, female. Back pain. TECHNIQUE: AP, lateral and swimmers views of the thoracic spine. COMPARISON: None available. FINDINGS: There are 12 rib-bearing thoracic vertebra. Thoracic spine is visualized from T1 to L3 in the front al projection and from T1-L3 in the lateral projection. Superior thoracic spine is visualized throug h composite shadows on the swimmer's view. No acute fracture is identified. There is a curvature of the lumbar spine convex left centered on L3. There is a mild curvature of th e mid-thoracic spine convex right. The thoracic kyphosis is preserved without spondylolisthesis. Neg ative for spondylolisthesis. Negative for traumatic subluxation. Negative for abnormal paravertebral soft tissue swelling. Normal bone mineralization. Vertebral body heights are maintained. No suspicious bone lesions are id entified. Negative for significant degenerative change. The visualized lungs are clear. They are age indeterminate fracture deformities of the posterior rig ht third and fourth ribs. IMPRESSION: 1. Curvature lumbar spine convex left centered on L3 with mild compensatory curvature of thoracic s pine convex right. 2. Negative for significant degenerative change. No acute fractures are identified in the thoracic spine. 3. Age indeterminate fracture deformities of the posterior right third and fourth ribs. RPTAT: HCTS Physician Zain Date Time Electronically viewed and signed by Physician Zain on 09/29/2017 00:48 CS/
[2017-09-29] MEDS ORDERED: ONDA-43 PO (00:57)
[2017-09-29] MEDS ORDERED: CEPH-443 PO (00:57)
[2017-09-29 01:38] VITALS: BP 111/66; PULSE 92; RESP 18; TEMP 97.9
--- NOTE | 2017-09-29 01:40 | ERD ---
ER Documentation Chief Complaint Chief Complaint BACK PAIN W/ VOMITING X1 WEEK. HPI This is a 32-year-old female presents to the ER with her aunt for nausea and vomiting secondary to alcohol abuse. Patient states that she is an alcoholic, and went on a drinking binge that started on Tuesday. Patient states that she drinks about 20 beers a day and her last drink was this morning. Patient states that now she feels shaky and has had severe nausea and nonbilious nonbloody vomiting. Patient denies any problems urinating. Patient lives at home with her aunt and stated she went to the [facility] for help. Patient started drinking when she was 25 years old. She also smokes cigarettes. She has a past medical 3 of anxiety and panic attacks. Takes lorazepam for this. Is additionally complaining of mid back pain, she denies any trauma. She denies any urinary bowel incontinence. She denies any saddle like anesthesia. Patient denies any IV drug use. ROS 12 point review of systems was done, all negative except per HPI. Medications Home Meds Active Scripts Cephalexin* (Keflex*) 500 Mg Capsule, 500 MG PO BID for 7 Days, CAP Prov:ARLENE MULLEN 09/29/17 Ondansetron Hcl* (Zofran*) 4 Mg Tab, 4 MG PO Q4H Y for NAUSEA AND OR VOMITING for 3 Days, TAB Prov:ARLENE MULLEN 09/29/17 Ondansetron (Zofran Odt) 4 Mg Tab.rapdis, 4 MG PO Q6, #10 Prov:SANDI JETER DO 09/02/17 Famotidine* (Pepcid*) 20 Mg Tablet, 20 MG PO BID for 4 Days, TAB Prov:LINDSAY HAHN MD 07/21/17 Reported Medications Lorazepam* (Lorazepam*) 1 Mg Tablet, 1 MG PO BID Y for ANXIETY, #30 TAB LAST TIME PATIENT TAKE HER MEDS A WEEK AGO 07/21/17 Discontinued Scripts Ranitidine Hcl* (Zantac*) 150 Mg Tablet, 150 MG PO BID, #60 TAB Prov:SANDI JETER DO 09/02/17 Disulfiram (Antabuse) 250 Mg Tablet, 250 MG PO DAILY, #30 TAB Take when alcohol is out of your system completely in order to assist you goals of alcohol avoidance. Prov:SANDI JETER DO 09/02/17 Ondansetron (Ondansetron Odt) 4 Mg Tab.rapdis, 4 MG PO Q6H Y for NAUSEA AND/OR VOMITING, #10 TAB Prov:SHE JOHNSON PA-C 08/11/17 Ranitidine Hcl* (Zantac*) 150 Mg Tablet, 150 MG PO BID Y for EPIGASTRIC PAIN, # 30 TAB Prov:SHE JOHNSON PA-C 08/11/17 Allergies Allergies: Coded Allergies: hydrocodone bit (Verified Allergy, Severe, 09/28/17) morphine (Verified Allergy, Intermediate, SOB , RASH, 09/28/17) PMhx/Soc Medical and Surgical Hx: pt denies Surgical Hx History of Surgery: No Anesthesia Reaction: No Hx Neurological Disorder: No Hx Respiratory Disorders: No Hx Cardiac Disorders: No Hx Psychiatric Problems: Yes (anxiety, panic attack,ETOH abuse) Hx Miscellaneous Medical Probl: Yes (CHRONIC ALCOHOLIC PANCREATITIS, ovarian cyst) Hx Alcohol Use: Yes (daily,last used this morning) Hx Substance Use: No Hx Tobacco Use: Yes (2-3 cigarettes) Smoking Status: Current every day smoker Physical Exam Vitals Vital Signs Date Time Temp Pulse Resp B/P Pulse Ox O2 Delivery O2 Flow Rate FiO2 09/28/17 21:06 98.8 113 20 120/76 98 Physical Exam GENERAL: The patient is well developed and appropriate for usual state of health , in no apparent distress. HEENT: Atraumatic. CHEST: Clear to auscultation bilaterally. There are no rales, wheezes or rhonchi. HEART: Regular rate and rhythm. No murmurs, clicks, rubs or gallops. ABDOMEN: Soft, nontender and nondistended. Good bowel sounds. No rebound or guarding. No gross peritonitis. No gross organomegaly or masses. No Hargrove sign or McBurney point tenderness. BACK: No midline or flank tenderness. Patient has some tenderness to palpation from T3- T5 NEURO: Alert and oriented. SKIN: There is no apparent rash or petechia. The skin is warm and dry. Result Diagram: 09/28/170 09/28/17 2350 Results 24 hrs Laboratory Tests Test 09/28/17 23:50 White Blood Count 8.210^3/ul Red Blood Count 5.1210^6/ul Hemoglobin 13.1g/dl Hematocrit 41.0% Mean Corpuscular Volume 80.1fl Mean Corpuscular Hemoglobin 25.6pg Mean Corpuscular Hemoglobin Concent 32.0g/dl Red Cell Distribution Width 13.6% Platelet Count 32938^3/UL Mean Platelet Volume 9.7fl Neutrophils % 50.0% Lymphocytes % 40.7% Monocytes % 7.5% Eosinophils % 0.9% Basophils % 0.5% Nucleated Red Blood Cells % 0.0/100WBC Neutrophils # 4.110^3/ul Lymphocytes # 3.310^3/ul Monocytes # 0.610^3/ul Eosinophils # 0.110^3/ul Basophils # 0.010^3/ul Nucleated Red Blood Cells # 0.010^3/ul Urine Color STRAW Urine Clarity CLEAR Urine pH 6.0 Urine Specific [place] 1.003 Urine Ketones NEGATIVEmg/dL Urine Nitrite NEGATIVEmg/dL Urine Bilirubin NEGATIVEmg/dL Urine Urobilinogen NEGATIVEmg/dL Urine Leukocyte Esterase 1+Catherine/ul Urine Microscopic RBC 1/HPF Urine Microscopic WBC 11/HPF Urine Squamous Epithelial Cells FEW/HPF Urine Bacteria FEW/HPF Urine Yeast (Budding) FEW/HPF Urine Hemoglobin NEGATIVEmg/dL Urine Glucose NEGATIVEmg/dL Urine Total Protein NEGATIVEmg/dl Sodium Level 145mmol/L Potassium Level 4.2mmol/L Chloride Level 102mmol/L Carbon Dioxide Level 30mmol/L Anion Gap 17 Blood Urea Nitrogen 7mg/dl Creatinine 0.66mg/dl Glucose Level 102mg/dl Calcium Level 9.2mg/dl Total Bilirubin 0.2mg/dl Direct Bilirubin 0.00mg/dl Indirect Bilirubin 0.2mg/dl Aspartate Amino Transf (AST/SGOT) 45IU/L Alanine Aminotransferase (ALT/SGPT) 25IU/L Alkaline Phosphatase 92IU/L Total Protein 7.9g/dl Albumin 4.2g/dl Globulin 3.70g/dl Albumin/Globulin Ratio 1.13 Lipase 219U/L Current Medications Medications (Trade) Dose Ordered Sig/Dayanna Route PRN Reason Start Time Stop Time Status Last Admin Dose Admin Sodium Chloride (NS) 1,000 ml @ 1,000 mls/hr Q1H STAT IV 09/28/17 23:34 09/29/17 00:33 DC 09/29/17 00:15 Ondansetron HCl (Zofran Inj) 4 mg ONCE STAT IV 09/28/17 23:34 09/28/17 23:37 DC 09/29/17 00:15 Famotidine (Pepcid Iv) 20 mg ONCE STAT IV 09/28/17 23:34 09/28/17 23:37 DC 09/29/17 00:15 Lorazepam (Ativan) 1 mg ONCE ONCE IV 09/29/17 00:00 09/29/17 00:01 DC 09/29/17 00:15 Procedures/MDM This is a 32-year-old female presents to the ER with nausea and vomiting secondary to alcohol use. Patient did have some tachycardia, and she was given fluids this is likely secondary to vomiting. Patient did not have any signs of acute delirium tremens at this time. Patient was comfortably sleeping after treatment in the ER and remained well-appearing. Patient will be treated for urinary tract infection that was found on urinalysis, and she will be sent home with Loyd. Patient is to follow-up at the [facility] as soon as possible. Patient should return to the ER if symptoms worsen. I shared my medical decision making with the patient and with her aunt, they both understand and agree with plan. Departure Diagnosis: Primary Impression: UTI (urinary tract infection) Additional Impressions: Alcohol abuse Nausea & vomiting Condition: Stable Patient Instructions: Understanding Urinary Tract Infections (UTIs), Alcohol Addiction Additional Instructions: Call your primary care doctor TOMORROW for an appointment during the next 1-2 days.See the doctor sooner or return here if your condition worsens before your appointment time. ARLENE MULLEN Sep 29, 2017 01:40
== END 2017-09-29 01:40 | disposition home or self-care (01) ==
LOC: FTE 20:59
DX: N39.0 Urinary tract infection, site not specified (principal); F10.10 Alcohol abuse, uncomplicated; F17.210 Nicotine dependence, cigarettes, uncomplicated
CPT/HCPCS: 36415; 72072; 80053; 81001; 83690; 85025; 96374; 96375; 99284; J2060; J2405; J7030; Z7610

== ENCOUNTER 2017-10-03 11:06 | Emergency (ER) | payer BC ==
[~2017-10-03] VITALS: Ht 149.9 cm; Wt 58.7 kg
[~2017-10-03 11:06] MED LIST changes: +CEPH-443 PO; +ONDA-43 PO
[2017-10-03 11:12] VITALS: Ht 149.9 cm; Wt 58.7 kg
[2017-10-03] MEDS ORDERED: ONDANSETRON (ODT) 4 MG TAB ODT STA (13:03)
[2017-10-03] MEDS ORDERED: ACETAMINOPHEN 325 MG TAB PO ONE (13:30)
--- NOTE | 2017-10-03 13:57 | ERD ---
ER Documentation Chief Complaint Chief Complaint ABD PAIN WITH VOMITING SINCE LAST NIGHT HPI 32-year-old female with a history of alcoholic pancreatitis presents with mid abdominal pain and suprapubic abdominal pain with nausea vomiting that started last night. The patient describes constant pain that is sharp and moderate, worse after vomiting. She reports loose stools associated with this. She has not had any vomiting otherwise for the 2 times this morning. She denies fevers or chills. ROS All systems reviewed and are negative except as per history of present illness. Medications Home Meds Active Scripts Ondansetron (Ondansetron Odt) 4 Mg Tab.rapdis, 4 MG PO Q6H Y for NAUSEA AND/OR VOMITING, #10 TAB Prov:SHE JOHNSON PA-C 10/03/17 Cephalexin* (Keflex*) 500 Mg Capsule, 500 MG PO BID for 7 Days, CAP Prov:ARLENE MULLEN 09/29/17 Ondansetron Hcl* (Zofran*) 4 Mg Tab, 4 MG PO Q4H Y for NAUSEA AND OR VOMITING for 3 Days, TAB Prov:ARLENE MULLEN 09/29/17 Ondansetron (Zofran Odt) 4 Mg Tab.rapdis, 4 MG PO Q6, #10 Prov:SANDI JETER DO 09/02/17 Famotidine* (Pepcid*) 20 Mg Tablet, 20 MG PO BID for 4 Days, TAB Prov:LINDSAY HAHN MD 07/21/17 Reported Medications Lorazepam* (Lorazepam*) 1 Mg Tablet, 1 MG PO BID Y for ANXIETY, #30 TAB LAST TIME PATIENT TAKE HER MEDS A WEEK AGO 07/21/17 Allergies Allergies: Coded Allergies: hydrocodone bit (Verified Allergy, Severe, 09/28/17) morphine (Verified Allergy, Intermediate, SOB , RASH, 09/28/17) PMhx/Soc History of Surgery: No Anesthesia Reaction: No Hx Neurological Disorder: No Hx Respiratory Disorders: No Hx Cardiac Disorders: No Hx Psychiatric Problems: Yes (anxiety, panic attack,ETOH abuse) Hx Miscellaneous Medical Probl: Yes (CHRONIC ALCOHOLIC PANCREATITIS, ovarian cyst) Hx Alcohol Use: Yes (daily) Hx Substance Use: No Hx Tobacco Use: Yes (2-3 cigarettes) Smoking Status: Current every day smoker Physical Exam Vitals Vital Signs Date Time Temp Pulse Resp B/P Pulse Ox O2 Delivery O2 Flow Rate FiO2 10/03/17 11:12 98.2 78 18 130/86 99 Physical Exam General: Well-developed, well-nourished. The patient appears in no acute distress. HEENT: Head is normocephalic, atraumatic. No scleral icterus. Neck: Supple. Nontender. Lungs: Clear to auscultation. Normal air movement. Heart: Regular rate and rhythm. S1 and S2 are normal. No murmurs, gallops, or rubs. Abdomen: Soft, mid abdominal tenderness nondistended. Bowel sounds are normoactive. Masses, no hepatosplenomegaly, negative Hargrove sign, no McBurney' s tenderness. Extremities: No clubbing or cyanosis. Normal pulses. Moving extremities x 4. No weakness. Neurologic: Alert and oriented 3. No focal deficits. Skin: Normal turgor. No rash or lesions. Result Diagram: 10/03/17 1320 10/03/17 1320 Results 24 hrs Laboratory Tests Test 10/03/17 13:00 10/03/17 13:20 Urine Color STRAW Urine Clarity CLEAR Urine pH 8.0 Urine Specific [place] 1.004 Urine Ketones NEGATIVEmg/dL Urine Nitrite NEGATIVEmg/dL Urine Bilirubin NEGATIVEmg/dL Urine Urobilinogen NEGATIVEmg/dL Urine Leukocyte Esterase NEGATIVELeu/ul Urine Hemoglobin NEGATIVEmg/dL Urine Glucose NEGATIVEmg/dL Urine Total Protein NEGATIVEmg/dl White Blood Count 8.510^3/ul Red Blood Count 4.6910^6/ul Hemoglobin 12.1g/dl Hematocrit 38.9% Mean Corpuscular Volume 82.9fl Mean Corpuscular Hemoglobin 25.8pg Mean Corpuscular Hemoglobin Concent 31.1g/dl Red Cell Distribution Width 14.0% Platelet Count 35579^3/UL Mean Platelet Volume 10.1fl Neutrophils % 68.4% Lymphocytes % 24.2% Monocytes % 5.4% Eosinophils % 0.9% Basophils % 0.5% Nucleated Red Blood Cells % 0.0/100WBC Neutrophils # 5.810^3/ul Lymphocytes # 2.110^3/ul Monocytes # 0.510^3/ul Eosinophils # 0.110^3/ul Basophils # 0.010^3/ul Nucleated Red Blood Cells # 0.010^3/ul Sodium Level 141mmol/L Potassium Level 3.9mmol/L Chloride Level 101mmol/L Carbon Dioxide Level 30mmol/L Anion Gap 14 Blood Urea Nitrogen 6mg/dl Creatinine 0.84mg/dl Glucose Level 126mg/dl Calcium Level 9.3mg/dl Total Bilirubin 0.4mg/dl Direct Bilirubin 0.00mg/dl Indirect Bilirubin 0.4mg/dl Aspartate Amino Transf (AST/SGOT) 42IU/L Alanine Aminotransferase (ALT/SGPT) 27IU/L Alkaline Phosphatase 77IU/L Total Protein 7.7g/dl Albumin 4.5g/dl Globulin 3.20g/dl Albumin/Globulin Ratio 1.40 Lipase 288U/L Serum HCG, Qualitative NEGATIVE Current Medications Medications (Trade) Dose Ordered Sig/Dayanna Route PRN Reason Start Time Stop Time Status Last Admin Dose Admin Acetaminophen (Tylenol Tab) 650 mg ONCE ONCE PO 10/03/17 13:30 10/03/17 13:31 DC 10/03/17 13:27 Ondansetron HCl (Zofran Odt) 4 mg ONCE STAT ODT 10/03/17 13:03 10/03/17 13:04 DC 10/03/17 13:27 Procedures/MDM 32-year-old female with a history of alcohol abuse, pancreatitis presents with mid abdominal pain starting last night. She reports nausea vomiting, and she denies any recent alcohol abuse. Her labs are normal, no leukocytosis, anemia, electrolyte abnormalities, evidence of pancreatitis, urine is negative for or UTI. She was given Tylenol as well as Zofran, she had improvement of her symptoms and will be discharged home with Zofran. The patient does have a history of chronic abdominal pain, without evidence of surgical and acute abdominal process. Departure Diagnosis: Primary Impression: Abdominal pain Condition: SHE Borrero PA-C Oct 03, 2017 13:57
[2017-10-03] MEDS ORDERED: ONDA4TAB14 PO (14:22)
== END 2017-10-03 14:41 | disposition home or self-care (01) ==
LOC: FTE 11:06
DX: R10.9 Unspecified abdominal pain (principal); F17.210 Nicotine dependence, cigarettes, uncomplicated; R11.2 Nausea with vomiting, unspecified
CPT/HCPCS: 36415; 80053; 81003; 83690; 84703; 85025; 99283; Z7610

== ENCOUNTER 2017-10-12 15:43 | Emergency (ER) | payer BC ==
[~2017-10-12] VITALS: Ht 162.6 cm; Wt 120.0 kg
[~2017-10-12 15:43] MED LIST changes: +ONDA4TAB14 PO
[2017-10-12 15:51] VITALS: Ht 162.6 cm; Wt 120.0 kg
[2017-10-12] MEDS ORDERED: SOD CHLORIDE 0.9% 1,000 ML IV STA (17:04)
[2017-10-12] MEDS ORDERED: ONDANSETRON 4 MG INJ IV STA (17:04)
[2017-10-12] MEDS ORDERED: FAMOTIDINE 20 MG INJ IV STA (17:04)
[2017-10-12] MEDS ORDERED: LORAZEPAM 2 MG INJ IV STA (17:04)
[2017-10-12] MEDS ORDERED: THIAMINE 100 MG TAB PO STA (17:04)
[2017-10-12 17:28] LABS: BASOPHIL # 0.1 10^3/ul (0.0-0.1); BASOPHILS % 0.7 % (0.0-2.0); EOSINOPHILS # 0.1 10^3/ul (0.0-0.5); EOSINOPHILS % 0.5 % (0.0-7.0); HEMATOCRIT 41.1 % (37.0-47.0); HEMOGLOBIN 13.2 g/dl (12.0-16.0); LYMPHOCYTES # 3.7 10^3/ul (0.8-2.9); MEAN CORPUSCULAR HEMOGLOBIN 25.5 pg (29.0-33.0); MEAN CORPUSCULAR HGB CONC 32.1 g/dl (32.0-37.0); MEAN CORPUSCULAR VOLUME 79.5 fl (82.0-101.0); MONOCYTE # 0.8 10^3/ul (0.3-0.9); MONOCYTES % 7.8 % (0.0-11.0); NEUTROPHIL # 5.3 10^3/ul (1.6-7.5); NEUTROPHILS % 53.7 % (39.0-77.0); PLATELET COUNT 447 10^3/UL (140-415); RED BLOOD COUNT 5.17 10^6/ul (4.20-5.40); RED CELL DISTRIBUTION WIDTH 13.7 % (11.5-14.5); WHITE BLOOD COUNT 9.9 10^3/ul (4.8-10.8)
--- NOTE | 2017-10-12 17:38 | RADRPT ---
PROCEDURE: XR Chest. CLINICAL INDICATION: Chest pain. Altered level of consciousness. TECHNIQUE: Single frontal view. COMPARISON: 07/21/2017. FINDINGS: The lungs are clear. The heart size is normal. There is no pleural effusion. There is no pneumothorax. There are old healed fractures of the right third and fourth ribs. IMPRESSION: 1. Old healed fractures of the right third and fourth ribs. 2. Otherwise unremarkable chest radiograph. 3. No change from 07/21/2017. RPTAT: QQ .Gabriel Chan MD, MD Date Time Electronically viewed and signed by .Gabriel Chan MD, MD on 10/12/2017 17:38 .R/
--- NOTE | 2017-10-12 17:43 | ERD ---
ER Documentation Chief Complaint Chief Complaint ETOH withdrawal, been drinking x 7 days, stopped today HPI 32-year-old female with a history of alcoholism presenting to the ER with multiple complaints. She states that she has been drinking alcohol for the past 2 months. Her last drink was today about 3 hours ago. She is complaining of epigastric pain for the past 2 days and nausea with vomiting for the past week. She denies any hematemesis or coffee-ground vomit. No diarrhea or constipation. No associated fevers or chills. She complains of epigastric pain that is sharp, radiating to her back, 9 out of 10. She states that Ativan usually helps her stop drinking. She is requesting that today. ROS All systems reviewed and are negative except as per history of present illness. Medications Home Meds Active Scripts Lorazepam* (Ativan*) 2 Mg Tablet, 2 MG PO Q8 Y for CONTROL WITHDRAWAL SYMPTOMS, #10 TAB Prov:SERGEI OZUNA MD 10/12/17 Ondansetron (Ondansetron Odt) 4 Mg Tab.rapdis, 4 MG PO Q6H Y for NAUSEA AND/OR VOMITING, #10 TAB Prov:SHE JOHNSON PA-C 10/03/17 Cephalexin* (Keflex*) 500 Mg Capsule, 500 MG PO BID for 7 Days, CAP Prov:ARLENE MULLEN 09/29/17 Ondansetron Hcl* (Zofran*) 4 Mg Tab, 4 MG PO Q4H Y for NAUSEA AND OR VOMITING for 3 Days, TAB Prov:ARLENE MULLEN 09/29/17 Ondansetron (Zofran Odt) 4 Mg Tab.rapdis, 4 MG PO Q6, #10 Prov:SANDI JETER DO 09/02/17 Famotidine* (Pepcid*) 20 Mg Tablet, 20 MG PO BID for 4 Days, TAB Prov:LINDSAY HAHN MD 07/21/17 Reported Medications Lorazepam* (Lorazepam*) 1 Mg Tablet, 1 MG PO BID Y for ANXIETY, #30 TAB LAST TIME PATIENT TAKE HER MEDS A WEEK AGO 07/21/17 Allergies Allergies: Coded Allergies: hydrocodone bit (Verified Allergy, Severe, 09/28/17) morphine (Verified Allergy, Intermediate, SOB , RASH, 09/28/17) PMhx/Soc Medical and Surgical Hx: pt denies Surgical Hx History of Surgery: No Anesthesia Reaction: No Hx Neurological Disorder: No Hx Respiratory Disorders: No Hx Cardiac Disorders: No Hx Psychiatric Problems: Yes (anxiety, panic attack,ETOH abuse) Hx Miscellaneous Medical Probl: Yes (CHRONIC ALCOHOLIC PANCREATITIS, ovarian cyst) Hx Alcohol Use: Yes (daily) Hx Substance Use: No Hx Tobacco Use: Yes (2-3 cigarettes) FmHx Family History: No diabetes Physical Exam Vitals Vital Signs Date Time Temp Pulse Resp B/P Pulse Ox O2 Delivery O2 Flow Rate FiO2 10/12/17 20:00 89 18 110/72 98 Room Air 10/12/17 18:35 98.0 97 18 105/67 98 Room Air 10/12/17 15:51 98.0 110 20 128/84 99 Physical Exam Const: Laying in bed, in no apparent distress, nontoxic Head: Atraumatic Eyes: Normal Conjunctiva ENT: Normal External Ears, Nose and Mouth. Neck: Full range of motion..~ No meningismus. Resp: Clear to auscultation bilaterally Cardio: Regular rate and rhythm, no murmurs Abd: Soft, no minimal tenderness in the epigastric area without rebound or guarding. non distended. Normal bowel sounds Skin: No petechiae or rashes. no jaundice Back: No midline or flank tenderness Ext: No cyanosis, or edema Neur: Awake and alert Psych: Normal Mood and Affect Result Diagram: 10/12/17170910/12/171709 Results 24 hrs Laboratory Tests Test 10/12/17 17:10 White Blood Count 9.910^3/ul Red Blood Count 5.1710^6/ul Hemoglobin 13.2g/dl Hematocrit 41.1% Mean Corpuscular Volume 79.5fl Mean Corpuscular Hemoglobin 25.5pg Mean Corpuscular Hemoglobin Concent 32.1g/dl Red Cell Distribution Width 13.7% Platelet Count 60887^3/UL Mean Platelet Volume 10.0fl Neutrophils % 53.7% Lymphocytes % 37.0% Monocytes % 7.8% Eosinophils % 0.5% Basophils % 0.7% Nucleated Red Blood Cells % 0.0/100WBC Neutrophils # 5.310^3/ul Lymphocytes # 3.710^3/ul Monocytes # 0.810^3/ul Eosinophils # 0.110^3/ul Basophils # 0.110^3/ul Nucleated Red Blood Cells # 0.010^3/ul Sodium Level 144mmol/L Potassium Level 4.3mmol/L Chloride Level 99mmol/L Carbon Dioxide Level 28mmol/L Anion Gap 21 Blood Urea Nitrogen 8mg/dl Creatinine 0.67mg/dl Glucose Level 100mg/dl Calcium Level 8.9mg/dl Total Bilirubin 0.2mg/dl Direct Bilirubin 0.00mg/dl Indirect Bilirubin 0.2mg/dl Aspartate Amino Transf (AST/SGOT) 40IU/L Alanine Aminotransferase (ALT/SGPT) 21IU/L Alkaline Phosphatase 88IU/L Total Protein 8.0g/dl Albumin 4.7g/dl Globulin 3.30g/dl Albumin/Globulin Ratio 1.42 Lipase 156U/L Serum HCG, Qualitative NEGATIVE Current Medications Medications (Trade) Dose Ordered Sig/Dayanna Route PRN Reason Start Time Stop Time Status Last Admin Dose Admin Sodium Chloride (NS) 1,000 ml @ 1,000 mls/hr Q1H STAT IV 10/12/17 17:04 10/12/17 18:03 DC 10/12/17 18:00 Lorazepam (Ativan) 1 mg ONCE STAT IV 10/12/17 17:04 10/12/17 17:07 DC 10/12/17 18:00 Ondansetron HCl (Zofran Inj) 4 mg ONCE STAT IV 10/12/17 17:04 10/12/17 17:07 DC 10/12/17 18:00 Thiamine HCl (Vitamin B1) 100 mg ONCE STAT PO 10/12/17 17:04 10/12/17 17:07 DC 10/12/17 18:00 Famotidine (Pepcid Iv) 20 mg ONCE STAT IV 10/12/17 17:04 10/12/17 17:07 DC 10/12/17 18:00 Procedures/MDM EMERGENT LABS AND DIAGNOSTIC STUDIES: Lab Results above were reviewed and interpreted by me. CBC: + Thrombocytosis. no anemia or evidence of infection CMP: No evidence of electrolyte abnormality, renal failure, hypoglycemia, liver failure, or biliary obstruction Lipase: no evidence of pancreatitis Preg negative 12-lead EKG was interpreted by Siena Ozuna MD: Normal Sinus Rhythm Normal axis Normal intervals No acute ST or T wave changes suggestive of acute ischemia or STEMI. Radiology Results as interpreted by Radiology below were reviewed by Aron Ozuna MD: CXR shows no acute abnormalities Initial Nursing notes reviewed. Previous Medical Records requested via the Electronic Health Record. EMERGENCY DEPARTMENT COURSE / MEDICAL DECISION MAKING: Patient is presenting with complaints of epigastric pain after binge drinking for the past few weeks. No evidence of liver failure, ACS, perforated viscus, biliary pathology, GI bleed, or pancreatitis. At this time, there are no signs of severe withdrawal. IV fluids, Pepcid and Ativan given. Reevaluated patient and she states she feels much better. She has family at bedside. She states she is serious about quitting alcohol. I will discharge her with 3 days worth of Ativan to help with withdrawal symptoms. I recommended seeking an outpatient detox program. Patient agreeable with discharge plan and stable upon d/c. Patient's blood pressure was elevated (>120/80) but appears stable without evidence of hypertensive emergency or urgency. The patient was counseled about the risks of hypertension and urged to pursue outpatient monitoring and therapy within a week with their primary care physician. Departure Diagnosis: Primary Impression: Alcohol intoxication Complication of substance-induced condition: uncomplicated Qualified Code: F10.920 - Alcoholic intoxication without complication Additional Impressions: Epigastric pain Alcohol withdrawal Complication of substance-induced condition: uncomplicated Qualified Code: F10.230 - Alcohol withdrawal syndrome without complication Condition: Stable Patient Instructions: Alcohol Withdrawal Referrals: GAVI FRANCISCO NELLIE R. MD Oct 12, 2017 17:43
[2017-10-12 17:48] LABS: ALBUMIN 4.7 g/dl (3.3-4.9); ALBUMIN/GLOBULIN RATIO 1.42; BILIRUBIN,INDIRECT 0.2 mg/dl (0-1.1); BILIRUBIN,TOTAL 0.2 mg/dl (0.2-1.3); CALCIUM 8.9 mg/dl (8.4-10.2); CREATININE 0.67 mg/dl (0.44-1.00); POTASSIUM 4.3 mmol/L (3.5-5.1)
[2017-10-12 18:35] VITALS: TEMP 98
[2017-10-12] MEDS ORDERED: LORA-444 PO (18:51)
[2017-10-12 20:00] VITALS: BP 110/72; PULSE 89; RESP 18
== END 2017-10-12 20:14 | disposition home or self-care (01) ==
LOC: E/R 15:43
DX: F10.230 Alcohol dependence with withdrawal, uncomplicated (principal); F17.210 Nicotine dependence, cigarettes, uncomplicated; R40.2142 Coma scale, eyes open, spontaneous, at arrival to emergency department; R40.2252 Coma scale, best verbal response, oriented, at arrival to emergency department; R40.2362 Coma scale, best motor response, obeys commands, at arrival to emergency department; R10.2 Pelvic and perineal pain
CPT/HCPCS: 36415; 71010; 80053; 83690; 84703; 85025; 93005; 96374; 96375; 99285; J2060; J2405; J7030; Z7610

== ENCOUNTER 2018-01-15 08:38 | Emergency (ER) | END 2018-01-15 15:24 | disposition home or self-care (01) ==

== ENCOUNTER 2018-02-15 12:19 | Emergency (ER) | END 2018-02-15 16:35 | disposition home or self-care (01) ==

== ENCOUNTER 2018-06-20 13:07 | Emergency (ER) | END 2018-06-20 18:21 | disposition left against medical advice (07) ==

== ENCOUNTER 2018-06-22 09:25 | Emergency (ER) | END 2018-06-22 12:57 | disposition home or self-care (01) ==

== ENCOUNTER 2018-08-07 19:19 | Outpatient (CLI) | END 2018-08-08 02:30 | disposition home or self-care (01) ==

== ENCOUNTER 2018-08-22 13:17 | Outpatient (CLI) | END 2018-08-22 17:45 | disposition left against medical advice (07) ==

== ENCOUNTER 2018-11-01 14:29 | Outpatient (CLI) | END 2018-11-01 16:40 | disposition home or self-care (01) ==

== ENCOUNTER 2018-11-08 08:30 | Outpatient (CLI) | END 2018-11-08 09:35 | disposition home or self-care (01) ==

== ENCOUNTER 2018-11-15 09:09 | Outpatient (CLI) | END 2018-11-15 10:06 | disposition home or self-care (01) ==

== ENCOUNTER 2018-11-19 06:34 | Outpatient (CLI) | END 2018-11-19 11:15 | disposition home or self-care (01) ==

== ENCOUNTER 2018-11-20 18:57 | Inpatient (IN) | payer OTHER ==
[~2018-11-20] VITALS: Ht 149.9 cm; Wt 64.0 kg
[~2018-11-20 18:57] MED LIST changes: -CEPH-443 PO; -FAMO-96 PO; +FER325 PO; -ONDA-43 PO; -ONDA4TAB11 PO; -ONDA4TAB14 PO
[2018-11-20 19:04] VITALS: BP 117/70; PULSE 79; RESP 18; Ht 149.9 cm; Wt 64.0 kg
[2018-11-20] MEDS ORDERED: LACTATED RINGER'S 1,000 ML IV PRN (19:47)
[2018-11-20] MEDS ORDERED: MISOPROSTOL 200 MCG TAB PR PRN (20:00)
[2018-11-20] MEDS ORDERED: BUTORPHANOL 2 MG INJ IV PRN (20:00)
[2018-11-20] MEDS ORDERED: CARBOPROST 250 MCG INJ IM PRN (20:00)
[2018-11-20] MEDS ORDERED: OXYTOCIN 30 UNITS/LR 500 ML IV SCH ×3 (20:00)
[2018-11-20] MEDS ORDERED: METHYLERGONOVINE 0.2 MG INJ IM PRN (20:00)
[2018-11-20] MEDS ORDERED: IBUPROFEN 600 MG TAB PO PRN (20:00)
[2018-11-20] MEDS ORDERED: LIDOCAINE 1% (MPF) 30 ML INJ INJ PRN (20:00)
[2018-11-20] MEDS ORDERED: BUTORPHANOL 1 MG INJ IV PRN (20:00)
[2018-11-20] MEDS ORDERED: OXYTOCIN 30 UNITS/LR 500 ML IV PRN (20:00)
--- NOTE | 2018-11-20 21:22 | TRIAGE ---
OB Triage Datetime Report Generated by CPN: 11/20/2018 21:22 Datetime: 11/20/2018 20:56 Comments: Monitor off, pt transferred to [facility], accompanied by Yousif Bernstein RN Datetime: 11/20/2018 20:36 Comments: pt sneezed, possible monitor loss of contact Datetime: 11/20/2018 20:20 Frequency: 2-8 Monitor Mode: External Duration (sec)2399: 80-120 Quality: Moderate Pattern: Normal: <= 5 Contractions in 10 Minutes Resting Tone [place]: Relaxed Monitor Mode: External US Variability: Moderate 6-25 bpm Accelerations: 15X15 Decelerations: None Category: Category I Pain Scale: 8 Pain Presence: Intermittent Pain Type: Contraction; Pressure Pain Location: Abdomen Pain Relief Measures: Comfort Measures Datetime: 11/20/2018 19:55 Stage of : Labor Assessment Type: Admission Assessment Level of Consciousness: Fully Conscious DTR's/Clonus: DTRs 2+; No Clonus Headache: Denies Blurred Vision: No Respiratory Effort: Unlabored; Regular Rhythm; Equal Expansion Breath Sounds, Left: Clear and Equal Breath Sounds, Right: Clear and Equal Nausea/Vomiting: Denies RUQ Epigastric Pain: Denies Lower Extremities Edema: None Degree: None Upper Extremities Edema: None Degree: None Facial Edema: None Temperature Route: Oral History of Falling: (0) No Secondary Diagnosis: (0) No Ambulatory Aid: (0) Bedrest/Nurse Assist IV Therapy: (20) Yes Gait: (0) Normal/Bedrest/Immobile Mental Status: (0) Oriented to Own Ability Fall Score: 20 Fall Risk Score Definition: No Risk: No action required Pain Scale: 8 Pain Presence: Intermittent Pain Type: Contraction; Pressure Pain Location: Abdomen Pain Relief Measures: Pain Medication Given; Comfort Measures Datetime: 11/20/2018 19:36 Monitor Mode: External Datetime: 11/20/2018 19:25 Monitor Mode: External US Datetime: 11/20/2018 19:20 Frequency: Irregular Monitor Mode: External Duration (sec)2399: 50-80 Quality: Mild Pattern: Normal: <= 5 Contractions in 10 Minutes Resting Tone [place]: Relaxed Interventions: Side to Side; Provider Notified FHR Baseline Rate: 150 Monitor Mode: External US Variability: Moderate 6-25 bpm Accelerations: 15X15 Decelerations: Late Category: Category II Datetime: 11/20/2018 19:16 Dilatation (cms): 3.5 Effacement (%): 80 Station: -2 Exam By: EYAL SANCHEZ Membrane Status: Intact Vaginal Bleeding: Normal Show Cervix, Consistency: Soft Cervix, Position: Anterior Presentation 'A': Cephalic Datetime: 11/20/2018 19:06 Assessment Type: Triage Level of Consciousness: Fully Conscious DTR's/Clonus: DTRs 2+; No Clonus Headache: Denies Blurred Vision: No Respiratory Effort: Unlabored; Regular Rhythm; Equal Expansion Breath Sounds, Left: Clear and Equal Breath Sounds, Right: Clear and Equal Nausea/Vomiting: Denies RUQ Epigastric Pain: Denies Lower Extremities Edema: None Degree: None Upper Extremities Edema: None Degree: None Facial Edema: None History of Falling: (0) No Secondary Diagnosis: (0) No Ambulatory Aid: (0) Bedrest/Nurse Assist IV Therapy: (0) No Gait: (0) Normal/Bedrest/Immobile Mental Status: (0) Oriented to Own Ability Fall Score: 0 Fall Risk Score Definition: No Risk: No action required Datetime: 11/20/2018 19:05 Time of Arrival: 11/20/2018 19:40 EGA: 38.1 Arrived By: Ambulatory Arrived From: Triage Chief Complaint: PT HERE C/O SPOTTING AND CRAMPS/UC's (started around 0200, getting stronger) Movement: Present Contractions: Irregular Time Contractions Began: 11/20/2018 02:00 Contractions: q7-10mins Rupture of Membranes: Denies Vaginal Bleeding: Scant Vaginal Discharge: Present Recent Sexual Intercouse: Denies Abdominal Trauma: Not Applicable Patient Complaints: Contractions; Cramping; Back Pain Time Provider Notified: 11/20/2018 19:39 Provider Notified: HADADIAN Initial Plan: VS, EFM, SVE Datetime: 11/20/2018 18:58 Monitor Mode: External Monitor Mode: External US Datetime: 11/19/2018 07:50 Fall Score: 0 Fall Risk Score Definition: No Risk: No action required Datetime: 11/19/2018 06:55 EGA: 38.0 Datetime: 11/15/2018 09:30 Fall Score: 0 Fall Risk Score Definition: No Risk: No action required Datetime: 11/15/2018 09:28 EGA: 37.3 Datetime: 11/08/2018 08:43 Fall Score: 0 Fall Risk Score Definition: No Risk: No action required Datetime: 11/08/2018 08:40 EGA: 36.3 Datetime: 11/01/2018 15:00 Fall Score: 0 Fall Risk Score Definition: No Risk: No action required Datetime: 08/22/2018 15:13 EGA: 35.3 Datetime: 08/22/2018 13:34 Fall Score: 0 Fall Risk Score Definition: No Risk: No action required Datetime: 08/22/2018 13:30 EGA: 28.3 Datetime: 08/07/2018 19:34 EGA: 26.2
[2018-11-20] MEDS: LACTATED RINGER'S 1,000 ML IV SCH ×2 (21:35→21:59)
--- NOTE | 2018-11-20 21:46 | PREAC ---
Date/Time of Note Date/Time of Note DATE: 11/20/18 TIME: 21:45 Anesthesia Eval and Record Evaluation Time Pre-Procedure Interview DATE: 11/20/18 TIME: 21:45 Age 33 Sex female NPO: 8 hrs Preoperative diagnosis labor pain Planned procedure labor epidural Past Medical History Past Medical History: None Surgery & Anesthesia Issues No known issue Meds Anticoagulation: No Beta Елена within 24 hr: No Reason Beta Елена not given: Pt. not on B-Елена Active Scripts Lorazepam* (Lorazepam*) 1 Mg Tablet, 1 MG PO Q8H PRN for ANXIETY, #15 TAB Prov:DEVYN CABAN DO 01/15/18 Reported Medications Ferrous Sulfate* (Ferrous Sulfate*) 325 Mg Tabec, 325 MG PO DAILY, TAB 11/08/18 Current Medications Lactated Ringer's 1,000 ml @ 125 mls/hr Q8H IV Last administered on 11/20/18at 21:35; Admin Dose 125 MLS/HR; Start 11/20/18 at 19:47 Butorphanol Tartrate (Stadol) 1 mg Q2H PRN IV PAIN; Start 11/20/18 at 20:00 Butorphanol Tartrate (Stadol) 2 mg Q2H PRN IV PAIN; Start 11/20/18 at 20:00 Lidocaine (Xylocaine 1% (Mpf)) 30 ml ONCE PRN INJ EPISIOTOMY; Start 11/20/18 at 20:00 Oxytocin/Lactated Ringer's 500 ml @ 500 mls/hr ONCE POST IV ; Start 11/20/18 at 20:00 Oxytocin/Lactated Ringer's 500 ml @ 125 mls/hr POST IV ; Start 11/20/18 at 20:00 Ibuprofen (Motrin) 600 mg ONCE PRN PO PAIN LEVEL 1-5; Start 11/20/18 at 20:00 Lactated Ringer's 1,000 ml @ 2,000 mls/hr Q30M PRN IV ANESTHESIA; Start 11/20/18 at 19:47 Oxytocin/Lactated Ringer's 500 ml @ 0 mls/hr ONCE PRN IV VAGINAL BLEEDING; Start 11/20/18 at 20:00 Methylergonovine Maleate (Methergine) 0.2 mg ONCE PRN IM VAGINAL BLEEDING; Start 11/20/18 at 20:00 Carboprost Tromethamine (Hemabate) 250 mcg ONCE PRN IM VAGINAL BLEEDING; Start 11/20/18 at 20:00 Misoprostol (Cytotec) 1,000 mcg ONCE PRN MN VAGINAL BLEEDING; Start 11/20/18 at 20:00 Oxytocin/Lactated Ringer's 500 ml @ 0 mls/hr FOR AUGMENTATION IV ; Start 11/20/18 at 20:00 Mineral Oil (Muri-Lube) 10 ml PRN PRN TOP DELIVERY LUBRICATION; Start 11/20/18 at 22:00 Meds reviewed: Yes Allergies Coded Allergies: hydrocodone bit (Verified Allergy, Severe, 11/19/18) morphine (Verified Allergy, Intermediate, SOB , RASH, 11/19/18) Allergies Reviewed: Yes Labs/Studies Labs Reviewed: Reviewed by anesthesiologist Result Diagram: 11/20/182024 Laboratory Tests 11/20/18 20:25 Blood Bank Test 11/20/18 20:25 Antibody Screen NEGATIVE Blood Type A POSITIVE Rh Immune Globulin Candidate NO test: Positive Pre-procedure Exam Last vitals Vital Signs Date Temp Pulse Resp B/P (MAP) Pulse Ox O2 O2 Flow FiO2 Time Delivery Rate 11/20/18 98.9 79 18 117/70 Room Air 19:04 (86) Airway: Adequate mouth opening, Adequate thyromental dist Mallampati: Mallampati III Teeth: Normal Lung: Normal Heart: Normal ASA Physical Status ASA physical status: 2 Emergency: None Planned Anesthetic Neuraxial: Epidural Planned Pain Management Epidural, Parenteral pain med, Other neuraxial med Pre-operative Attestations Prior to commencing anesthesia and surgery, the patient was re-evaluated, there was verification of: *The patient's identity *The results of appropriate recent lab work and preoperative vital signs *The above evaluation not changing prior to induction *Anesthetic plan, risk benefits, alternative and complications discussed with patient/family; questions answered; patient/family understands, accepts and wishes to proceed. MARTY JONES MD Nov 20, 2018 21:45
[2018-11-20] MEDS ORDERED: ONDANSETRON 4 MG INJ IV PRN (22:00)
[2018-11-20] MEDS ORDERED: ZOLPIDEM 5 MG TAB PO PRN (22:00)
[2018-11-20] MEDS ORDERED: KETOROLAC 30 MG INJ IV PRN (22:00)
[2018-11-20] MEDS ORDERED: HYDROmorphONE 0.5 MG/0.5 ML SYG IV PRN ×2 (22:00)
[2018-11-20] MEDS ORDERED: MINERAL OIL LIGHT 10 ML VIAL TOP PRN (22:00)
[2018-11-20] MEDS ORDERED: DIPHENHYDRAMINE 50 MG INJ IV PRN (22:00)
[2018-11-20] MEDS ORDERED: NALOXONE (0.4 MG/ML) INJ IV PRN (22:00)
[2018-11-20] MEDS ORDERED: FENTAnyl 2MCG/ML-ROPIV 0.2% 100 ML BAG EPI SCH (22:00)
--- NOTE | 2018-11-20 22:49 | PAC ---
Date/Time of Note Date/Time of Note DATE: 11/20/18 TIME: 22:48 Post-Anesthesia Notes Post-Anesthesia Note Last documented vital signs Vital Signs Date Temp Pulse Resp B/P (MAP) Pulse Ox O2 O2 Flow FiO2 Time Delivery Rate 11/20/18 98.9 79 18 117/70 Room Air 19:04 (86) Activity: WNL Respiratory function: WNL Cardiovascular function: WNL Mental status: Baseline Pain reasonably controlled: Yes Hydration appropriate: Yes Nausea/Vomiting absent: Yes MARTY JONES MD Nov 20, 2018 22:49
--- NOTE | 2018-11-20 23:57 | HP ---
Date/Time of Note Date/Time of Note DATE: 11/20/18 TIME: 23:55 OB - History Hx of Present Free Text/Dictation 33-year-old with single intrauterine at 38 weeks and 1 day present to triage complaining of uterine contractions. She states good movement. She denies nausea, vomiting, shortness of breath, chest pain, headache, visual changes, vaginal bleeding or LOF. Chief Complaint: Uterine contractions Estimated Due Date: Dec 01, 2017 : 5 Para: 4 Spontaneous : 0 Therapeutic : 0 Care: Good Care Ultrasounds: Normal mid trimester US Past Family/Social History * Past Medical, Surgical, Family and Obstetric Histories reviewed from [facility]. Blood Type: O+ Rubella: immune RPR/VDRL: Negative GBS Status: Negative HBsAG: Negative OB Admission Exam Vital Signs Vital Signs Vital Signs Date Temp Pulse Resp B/P (MAP) Pulse Ox O2 O2 Flow FiO2 Time Delivery Rate 11/20/18 98.9 79 18 117/70 Room Air 19:04 (86) Physical Exam HEENT: WNL Heart: Rhythm Normal Abdomen: WNL Extremities: Normal Reflexes: Normal Cervical Dilatation: 4cm Effacement: 75% Station: -3 Membranes: Intact Heart Rate: 140's Accelerations: Accelerations Present Decelerations: No Decelerations Varibility: Moderate Contractions on Admission: < 5 Minutes Apart Intensity: Moderate Last 72 hours Lab Results CBC & BMP 11/20/18 20:25 OB Assessment/Plan Other plan: 33 years old with single intrauterine at 38 weeks and 1days in early labor. She had one episode of prolonged late deceleration in triage. Currently heart rate is category 1. Patient admitted for close monitoring, start Pitocin for augmentation of labor. - FHR: No sign of metabolic acidosis- Category I - Continuous EFM, toco - CBC, blood type and screen - Analgesia options with R/B/A discussed in detail with patient - Epidural per patient request - Please see the orders - A+/Rubella: Immune - GBS: negative 2) anemia: Recommend ferrous sulfate 325 mg 3 times daily and continue vitamin. Admission, procedures, expectations, risks and possible complications have been discussed in detail with the patient. Risk of vaginal delivery including but not limited to bleeding, infection, cervical laceration, placental retention, injury to fetus, blood transfusion, blood transfusion related infection, risk of anesthesia, adhesion, cervical laceration, episiotomy/laceration, possible delivery with risk of bleeding, infection, injury to other organs (bowel, bladder, ureter, vessels, nerves), injury to fetus, blood transfusion, blood transfusion related infection, risk of anesthesia, scar and hernia formation, needs for future , removal of uterus or any other indicated surgery discussed with the patient. She expressed understanding and repeats the risks. All of her questions were answered. She signed the informed consent. PHYSICIAN'S VERIFICATION OF INFORMED CONSENT The patient was counseled regarding the procedure, its indications, risks, p otential complications and alternatives and any questions were answered. Consent was obtained. PLANNED PROCEDURE/TREATMENT: Vaginal delivery, episiotomy, repair of laceration possible delivery STEFANIE POSADA Nov 20, 2018 23:57
[2018-11-21] MEDS ORDERED: DEXTROSE 5%-LR 1,000 ML IV SCH (01:20)
[2018-11-21] MEDS ORDERED: LACTATED RINGER'S 1,000 ML IV* SCH (01:20)
--- NOTE | 2018-11-21 01:20 | LDN ---
Date/Time of Note Date/Time of Note DATE: 11/21/18 TIME: 01:15 Delivery Summary 33-year-old 5 para 4004 with single intrauterine at 38 weeks and 2 days delivered a viable female over an intact perineum. There was loose nuchal cord x1, baby delivered fast with strong maternal force. Cord clamped and cut after stopping pulsation. Baby given to the nurse. Cord blood collected for further evaluation. Placenta delivered spontaneously and intact with three-vessel cord. Patient tolerated procedure well. Time of delivery 00: 58 Weight 6 pounds 13 ounces 8 at 1 minutes and 9 at 5 minutes EBL 150 mL Weeks of Gestation 38 weeks and 2 days Placenta Delivered: Spontaneously Meconium: none Episiotomy: No Estimated blood loss: 150 Sponge & Needle done & correct: Yes All needle counts correct: Yes Any foreign bodies felt in the: No Infant Delivery Information Sex Sex: female Apgars 1 Minute: 8 5 Minute: 9 10 Minute: 10 Suctioning Nose & mouth suctioned at robert: No Umbilical Cord Umbilical cord with: 3 Vessels Cord presentations: nuchal cord Nuchal cord present X: 1 Cord Blood was obtained: Yes Mother & Baby Disposition Disposition Mom & Baby to Maternity; Good: Yes STEFANIE POSADA Nov 21, 2018 01:20
[2018-11-21] MEDS ORDERED: MISOPROSTOL 200 MCG TAB PR PRN (01:30)
[2018-11-21] MEDS ORDERED: DIBUCAINE 1% 30 GM OINT TOP PRN (01:30)
[2018-11-21] MEDS ORDERED: METHYLERGONOVINE 0.2 MG INJ IM PRN (01:30)
[2018-11-21] MEDS ORDERED: LANOLIN HPA 1 PKT TOP PRN (01:30)
[2018-11-21] MEDS ORDERED: ACETAMINOPHEN 325 MG TAB PO PRN (01:30)
[2018-11-21] MEDS ORDERED: ONDANSETRON 4 MG INJ IV PRN (01:30)
[2018-11-21] MEDS ORDERED: SENNA/DOCUSATE NA (8.6MG/50MG) TAB PO PRN (01:30)
[2018-11-21] MEDS ORDERED: OXYTOCIN 30 UNITS/LR 500 ML IV PRN (01:30)
[2018-11-21] MEDS ORDERED: DIPHENHYDRAMINE 50 MG INJ IV PRN (01:30)
[2018-11-21] MEDS ORDERED: BENZOCAINE 20% 56 ML SPRAY TOP PRN (01:30)
[2018-11-21] MEDS ORDERED: WITCH HAZEL/GLYCERIN PAD PR PRN (01:30)
[2018-11-21] MEDS ORDERED: CARBOPROST 250 MCG INJ IM PRN (01:30)
[2018-11-21] MEDS ORDERED: ZOLPIDEM 5 MG TAB PO PRN (01:30)
[2018-11-21] MEDS: IBUPROFEN 600 MG TAB PO SCH ×3 (01:48→17:59)
[2018-11-21 04:10] VITALS: BP 110/70; PULSE 72; RESP 17
--- NOTE | 2018-11-21 05:01 | NUR ---
EOSS; STABLE CONDITION. FUNDUS FIRM AT UMBILICUS. LOCHIA MINIMAL. DUE TO VOID. ADVISED PATIENT TO CALL WHEN GOING TO BATHROOM FOR THE FIRST TIME. BABY IN NICU FOR OBSERVATION.
[2018-11-21] MEDS ORDERED: ROPIVACAINE 0.5 % 30 ML VIAL ONE (07:00)
[2018-11-21 08:00] VITALS: BP 115/80; PULSE 70; RESP 18
[2018-11-21] MEDS: LORAZEPAM 1 MG TAB PO PRN ×2 (09:26→21:47)
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
[2018-11-21 16:00] VITALS: BP 110/68; PULSE 67; RESP 18
--- NOTE | 2018-11-21 18:25 | NUR ---
EOSS: Vital signs stable, denies pain or discomfort. Seen and cleared by social worker delinquency prevention. Appropriate and bonding well with her baby.
[2018-11-21 20:30] VITALS: BP 109/76; PULSE 63; RESP 18
[2018-11-22 03:45] VITALS: BP 94/65; PULSE 61; RESP 18
--- NOTE | 2018-11-22 04:22 | NUR ---
EOSS: Patient in stable condition, bonding well with baby, bottle feeding, fundus is firm, bleeding is minimal, VSS. CBC due in the am
[2018-11-22] MEDS: IBUPROFEN 600 MG TAB PO SCH ×5 (05:51→23:48)
[2018-11-22 08:20] VITALS: BP 114/73; PULSE 67; RESP 19
[2018-11-22] MEDS: LORAZEPAM 1 MG TAB PO PRN ×2 (08:24→21:42)
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
--- NOTE | 2018-11-22 14:15 | NUR ---
NEEL NOTE: F/U WITH MOB Per Dr. Butts, the MoB had requested to be discharged today instead of tomorrow. This publicity writer received a call from ALEJANDRA Vann, that the MoB would like to speak with the SW. Called and spoke with her at her room Ext. She stated she was informed by her MD that she has an open DCFS case. Clarified to the MoB that she does not have an open case at this time. Encouraged her to remain at the hospital (she delivered the bay at 0058 on 11/21). Reminded her of her Hx of alcohol use. She did not resist and agreed to stay. Preethi SANCHEZ will f/u with the MoB at bedside to confirm and Dr. Butts will be notified by RN. SHAIKH to remain available.
[2018-11-22 15:53] VITALS: BP 123/81; PULSE 72; RESP 18
--- NOTE | 2018-11-22 18:03 | NUR ---
EOSS: VSS, SCHEDULED MOTRIN CONTROLLING PAIN LEVEL. PT. WAS MEDICATED X1 ON THIS SHIFT WITH ATIVAN DUE TO ANXIETY. BREAST CARE EXPLAINED THIS AM DUE TO NO BREAST FEEDING. FUNDUS REMAINS FIRM WITH SCANT TO SMALL AMOUNT OF LOCHIA. PT. WAS SEEN BY DCFS THIS AFTERNOON. PT. STATED DCFS BOBBIN PRESSER VISITED HER OTHER CHILDREN AT HOME. PLAN IS TO DISCHARGE PT. WITH BABY UNLESS DCFS STATES OTHERWISE. BONDING WELL WITH THE BABY.
--- NOTE | 2018-11-22 18:49 | PN ---
Date/Time of Note Date/Time of Note DATE: 11/22/18 TIME: 18:46 OB Subjective Subjective Subjective PPD# 1 Patient is doing well. She denies nausea, vomiting, shortness of breath, chest pain, headache. She has been ambulating without difficulty, tolerating regular diet. Pain is well controlled on current medications OB Objective Objective Objective VS - Last 72 Hours, by Label Date Temp Pulse Resp B/P (MAP) Pulse Ox O2 O2 Flow FiO2 Time Delivery Rate 11/22/18 98.0 72 18 123/81 Room Air 15:53 (95) 11/22/18 98.2 67 19 114/73 Room Air 08:20 (87) 11/22/18 97.8 61 18 94/65 (75) Room Air 03:45 11/21/18 97.9 63 18 109/76 Room Air 20:30 (87) 11/21/18 98.2 67 18 110/68 Room Air 16:00 (82) 11/21/18 98.6 70 18 115/80 Room Air 08:00 (92) 11/21/18 98.8 72 17 110/70 Room Air 04:10 (83) 11/21/18 98.3 01:48 11/20/18 98.9 79 18 117/70 Room Air 19:04 (86) General: AAO X 3, comfortable, NAD, appropriate mood and affect. ABD: +BS. Soft, non-tender. Uterus 2 cm below umbilicus Flank: No CVA tenderness (B/L) LE: Mild edema. No clubbing, cyanosis, thigh or calf tenderness (B/L). Homans 'sign is negative OB Assessment/Plan Other plan: 33-year-old s/p normal vaginal delivery at 38 weeks and 2 days. PPD#1 - AF, VSS - Baby is doing well, at bed side. She is bonding well - Contraception methods with R/B/A/FR discussed - Continue care - Discharge home tomorrow - Rx and instruction given - Follow up in 2 and 6 weeks at clinic 2) history of alcohol abuse and alcohol intoxication: She currently denies alcohol use, states it is in rehab. services tech consult placed please see their note for detail. OB read she is clear for her discharge home tomorrow. STEFANIE POSADA Nov 22, 2018 18:49
--- NOTE | 2018-11-22 18:49 | DS ---
Date/Time of Note Date/Time of Note DATE: 11/22/18 TIME: 18:49 Obstetrical Discharge Record Final Diagnosis Final Diagnosis: Term delivered Other Final Diagnosis 33-year-old s/p normal vaginal delivery at 38 weeks and 2 days. PPD#1. She is ambulating and tolerating regular diet. She is voiding without difficulty. Pain is controlled on current medication - AF, VSS - Baby is doing well, at bed side. She is bonding well - Contraception methods with R/B/A/FR discussed - Continue care - Discharge home tomorrow - Rx and instruction given - Follow up in 2 and 6 weeks at clinic 2) history of alcohol abuse and alcohol intoxication: She currently denies alcohol use, states it is in rehab. creative services coordinator consult placed please see their note for detail. OB read she is clear for her discharge home tomorrow. Vaginal Delivery Obstetrical Delivery: Spontaneous Condition on Discharge Physical Assessment Last Vitals: v Vital Signs Date Temp Pulse Resp B/P (MAP) Pulse Ox O2 O2 Flow FiO2 Time Delivery Rate 11/22/18 98.0 72 18 123/81 Room Air 15:53 (95) Voiding: Yes Bowel Movement: Yes Breast: Soft, non-tender Fundus: Firm Calf Tenderness: No Patient Condition: Stable STEFANIE POSADA Nov 22, 2018 18:49
[2018-11-22 20:15] VITALS: BP 126/77; PULSE 65; RESP 19
[2018-11-23 03:50] VITALS: BP 119/69; PULSE 71; RESP 20
--- NOTE | 2018-11-23 05:10 | NUR ---
EOSS: Pt is in stable condition. No distress noted. Fundus firm with small to scanty amount of lochia. Bonding well with baby.
[2018-11-23] MEDS: IBUPROFEN 600 MG TAB PO SCH ×2 (06:16→11:32)
[2018-11-23 08:00] VITALS: BP 119/82; PULSE 77; RESP 18
[2018-11-23] MEDS ORDERED: MEASLES,MUMPS,RUBELLA VACCINE INJ SC* ONE (09:00)
[2018-11-23] MEDS ORDERED: DIPHTH/TET/ACEL PERTUSS (ADULT) 0.5 ML VIAL IM* ONE (09:00)
[2018-11-23] MEDS: LORAZEPAM 1 MG TAB PO PRN (10:36)
--- NOTE | 2018-11-23 10:50 | NUR ---
SW NOTE: DC PLANNING Discussed the baby's DC with RN, Tammy [id number]. She stated she spoke with the pt's DCFS SW, Jazmyn Nava , who has stated it is ok to d/c the baby to the MoB. This chief writer called Ms Nava and discussed the MoB's alcohol levels in May and in July. She stated the MoB has agreed to random drug test with DCFS and the baby may be discharged to the MoB when medically cleared.
--- NOTE | 2018-11-23 12:02 | NUR ---
dr rodríguez here, spoke with pt about going home.
[2018-11-23 15:45] VITALS: BP 117/86; PULSE 83; RESP 16
--- NOTE | 2018-11-23 17:13 | NUR ---
spoke with pt in regards to pt's desire for control medication at this time per dr steele request, pt denies wanting any medications at this time for control, states "i will wait to have my tubal in 6 weeks."
--- NOTE | 2018-11-23 17:25 | NUR ---
d/c with baby in arms via w/c and all belongings taken, no distress noted.
--- NOTE | 2018-11-23 18:41 | QN ---
Documentation Comment Denies any complaint. Is not breast-feeding. Denies any breast engorgement. Vaginal bleeding small. Ambulating. Urinated. Physical examination: General appearance alert and oriented x4 does not appear to be in any acute distress Abdomen: Soft, fundus palpable 1 cm below the umbilicus and nontender and firm Breast: No evidence of engorgement or mastitis Extremities: No calf tenderness no click no edema Laboratory Tests Test 11/22/18 06:55 White Blood Count 8.3 10^3/ul Red Blood Count 3.59 10^6/ul Hemoglobin 8.3 g/dl Hematocrit 27.2 % Mean Corpuscular Volume 75.8 fl Mean Corpuscular Hemoglobin 23.1 pg Mean Corpuscular Hemoglobin Concent 30.5 g/dl Red Cell Distribution Width 18.3 % Platelet Count 138 10^3/UL Mean Platelet Volume 13.1 fl Immature Granulocytes % 1.000 % Neutrophils % 65.1 % Lymphocytes % 26.8 % Monocytes % 5.4 % Eosinophils % 1.3 % Basophils % 0.4 % Nucleated Red Blood Cells % 0.0 /100WBC Immature Granulocytes # 0.080 10^3/ul Neutrophils # 5.4 10^3/ul Lymphocytes # 2.2 10^3/ul Monocytes # 0.5 10^3/ul Eosinophils # 0.1 10^3/ul Basophils # 0.0 10^3/ul Nucleated Red Blood Cells # 0.0 10^3/ul Status post day #2 Anemia, , asymptomatic Discussed with patient regarding taking iron and stool softener stable for discharge home Follow-up with OB office in 6 weeks or sooner as needed Declined breast-feeding and desired to proceed with bottlefeeding. Discussed with patient regarding tight bra REAGAN GRAY MD Nov 23, 2018 18:41
== END 2018-11-23 17:37 | disposition home or self-care (01) | DRG 807 ==
LOC: OBT 18:57 → L-D 18:58 → OBT 19:40 → L-D 19:40 → PP1 11-21 03:12
PROVIDERS: ADMIT Obstetrics & Gynecology; ATTEND Obstetrics & Gynecology
PROC: 10E0XZZ Delivery of Products of Conception, External Approach (ICD-10-PCS; principal; 2018-11-20)
DX: O69.81X0 Labor and delivery complicated by cord around neck, without compression, not applicable or unspecified (principal); Z37.0 Single live birth; O99.02 Anemia complicating childbirth; Z3A.38 38 weeks gestation of pregnancy
CPT/HCPCS: 62319; 80307; 85025; 85610; 85730; 86592; 86850; 86900; 86901; 87340; G0463; J2590; J2795; J3010; J7120; J7121

== ENCOUNTER 2018-12-23 21:17 | Emergency (ER) | payer OTHER ==
[~2018-12-23] VITALS: Ht 149.9 cm; Wt 54.8 kg
[2018-12-23 21:20] VITALS: Ht 149.9 cm; Wt 54.8 kg
[2018-12-23] MEDS ORDERED: KETOROLAC 15 MG INJ IV ONE (21:54)
[2018-12-23] MEDS ORDERED: ONDANSETRON 4 MG INJ IV STA (22:11)
[2018-12-23] MEDS ORDERED: SOD CHLORIDE 0.9% 1,000 ML IV ONE (23:30)
[2018-12-24] MEDS ORDERED: CEFTRIAXONE 1 GM/50 ML (PMX) 50 ML IVPB ONE
--- NOTE | 2018-12-24 00:43 | ERD ---
ER Documentation Chief Complaint Chief Complaint C/O EPIGASTRIC AP W/ VOMITING AND DIARRHEA, HX OF GALLSTONES HPI This is a 32-year-old female presents for avulsion of epigastric pain with vomiting and diarrhea. Patient has history of gallstones, states that pain is mainly in her epigastric area, she denies fever, she denies vaginal discharge. She recently had a baby, and has a 1-month-old at home. ROS All systems reviewed and are negative except as per history of present illness. Medications Home Meds Active Scripts Lorazepam* (Lorazepam*) 1 Mg Tablet, 1 MG PO Q8H PRN for ANXIETY, #15 TAB Prov:BLAKECATRACHITOSUMMERVINCENTCHELSEY Thakkar DO 01/15/18 Reported Medications Ferrous Sulfate* (Ferrous Sulfate*) 325 Mg Tabec, 325 MG PO DAILY, TAB 11/08/18 Allergies Allergies: Coded Allergies: hydrocodone bit (Verified Allergy, Severe, 11/19/18) morphine (Verified Allergy, Intermediate, SOB , RASH, 11/19/18) PMhx/Soc History of Surgery: No Anesthesia Reaction: No Hx Neurological Disorder: No Hx Respiratory Disorders: No Hx Cardiac Disorders: No Hx Psychiatric Problems: Yes (anxiety, panic attack,ETOH abuse) Hx Miscellaneous Medical Probl: No Hx Alcohol Use: Yes (06/20/18 1500) Hx Substance Use: No Hx Tobacco Use: No Smoking Status: Never smoker Physical Exam Vitals Vital Signs Date Temp Pulse Resp B/P (MAP) Pulse Ox O2 O2 Flow FiO2 Time Delivery Rate 12/23/18 98.2 104 18 117/83 99 Room Air 21:53 (94) 12/23/18 97.7 115 24 124/72 96 21:20 (89) Physical Exam Const: No acute distress Head: Atraumatic Eyes: Normal Conjunctiva ENT: Normal External Ears, Nose and Mouth. Neck: Full range of motion. No meningismus. Resp: Clear to auscultation bilaterally Cardio: Regular rate and rhythm, no murmurs Abd: Soft, n mild epigastric tenderness, negative Hargrove sign, no rebound or guarding, there is no McBurney's tenderness, negative psoas or obturator sign.. Normal bowel sounds Skin: No petechiae or rashes Back: No midline or flank tenderness Ext: No cyanosis, or edema Neur: Awake and alert Psych: Normal Mood and Affect Result Diagram: 12/23/18220112/23/182201 Results 24 hrs Laboratory Tests Test 12/23/18 22:02 12/23/18 22:09 White Blood Count 15.4 10^3/ul Red Blood Count 5.75 10^6/ul Hemoglobin 13.6 g/dl Hematocrit 44.0 % Mean Corpuscular Volume 76.5 fl Mean Corpuscular Hemoglobin 23.7 pg Mean Corpuscular Hemoglobin Concent 30.9 g/dl Red Cell Distribution Width 16.3 % Platelet Count 323 10^3/UL Mean Platelet Volume 10.7 fl Immature Granulocytes % 0.300 % Neutrophils % 78.5 % Lymphocytes % 15.4 % Monocytes % 5.0 % Eosinophils % 0.5 % Basophils % 0.3 % Nucleated Red Blood Cells % 0.0 /100WBC Immature Granulocytes # 0.050 10^3/ul Neutrophils # 12.1 10^3/ul Lymphocytes # 2.4 10^3/ul Monocytes # 0.8 10^3/ul Eosinophils # 0.1 10^3/ul Basophils # 0.0 10^3/ul Nucleated Red Blood Cells # 0.0 10^3/ul Urine Color YELLOW Urine Clarity SLIGHTLY CLOUDY Urine pH 5.0 Urine Specific Homer 1.018 Urine Ketones NEGATIVE mg/dL Urine Nitrite NEGATIVE mg/dL Urine Bilirubin NEGATIVE mg/dL Urine Urobilinogen NEGATIVE mg/dL Urine Leukocyte Esterase 2+ Catherine/ul Urine Microscopic RBC 2 /HPF Urine Microscopic WBC 14 /HPF Urine Squamous Epithelial Cells FEW /HPF Urine Bacteria FEW /HPF Urine Hemoglobin NEGATIVE mg/dL Urine Glucose NEGATIVE mg/dL Urine Total Protein 1+ mg/dl Sodium Level 146 mmol/L Potassium Level 3.9 mmol/L Chloride Level 100 mmol/L Carbon Dioxide Level 28 mmol/L Anion Gap 18 Blood Urea Nitrogen 12 mg/dl Creatinine 0.75 mg/dl Est Glomerular Filtrat Rate mL/min > 60 mL/min Glucose Level 114 mg/dl Calcium Level 10.1 mg/dl Total Bilirubin 0.3 mg/dl Direct Bilirubin 0.00 mg/dl Indirect Bilirubin 0.3 mg/dl Aspartate Amino Transf (AST/SGOT) 26 IU/L Alanine Aminotransferase (ALT/SGPT) 14 IU/L Alkaline Phosphatase 99 IU/L Total Protein 9.0 g/dl Albumin 4.9 g/dl Globulin 4.10 g/dl Albumin/Globulin Ratio 1.19 Lipase 119 U/L POC Beta HCG, Qualitative NEGATIVE Current Medications Medications Dose Sig/Dayanna Start Time Status Last (Trade) Ordered Route PRN Stop Time Admin Dose Reason Admin Ketorolac 15 mg ONCE ONCE 12/23/18 DC 12/23/18 Tromethamine IV 21:54 22:27 (Toradol) 12/23/18 21:55 Ondansetron 4 mg ONCE STAT 12/23/18 DC 12/23/18 HCl (Zofran IV 22:11 22:27 Inj) 12/23/18 22:12 Sodium 1,000 ml @ Q1H ONCE 12/23/18 DC 12/23/18 Chloride 1,000 mls/hr IV 23:30 23:33 12/24/18 00:29 Ceftriaxone 50 ml @ ONCE ONCE 12/24/18 DC 12/23/18 Sodium 100 mls/hr IVPB 00:00 23:39 12/24/18 00:29 Procedures/MDM This Is a 33-year-old female presents for evaluation of epigastric pain. In the ED the patient was given analgesia, with improvement in her symptoms, labs showed no evidence of transaminitis, lipase was also negative ultrasound showed multiple gallstones with no evidence of free fluid. Clinically she has no signs of acute cholecystitis. Patient felt comfortable with discharge home, I noted that she had a leukocytosis of 15, and also noted some pyuria, thus I considered that she could have early pyelonephritis, she is given a dose of ceftriaxone, and will be discharged on Keflex. Strict return precautions were given to return for any worsening abdominal pain, fever, recurrent vomiting any migrating pain particulates of right lower quadrant, or otherwise signs of appendicitis, at discharge the patient was in no acute distress Departure Diagnosis: Primary Impression: Abdominal pain Abdominal location: generalized Qualified Codes: R10.84 - Generalized abdominal pain Additional Impressions: Epigastric pain UTI (urinary tract infection) Hematuria presence: without hematuria Condition: STANLEY Barajas MD Dec 24, 2018 00:43
[2018-12-24] MEDS ORDERED: CEPH-443 PO (00:47)
[2018-12-24] MEDS ORDERED: ONDA4TAB14 PO (00:47)
[2018-12-24 01:30] VITALS: BP 120/68; PULSE 98; RESP 16
[2019-01-09] MEDS ORDERED: CHLO25CA9 PO (02:19)
== END 2018-12-24 01:30 | disposition home or self-care (01) ==
LOC: E/R 21:17
DX: N39.0 Urinary tract infection, site not specified (principal)
CPT/HCPCS: 36415; 76705; 80053; 81001; 81025; 83690; 85025; 87086; 96374; 96375; J0696; J1885; J2405; J7030; Z7502

== ENCOUNTER 2019-01-15 18:47 | Emergency (ER) | payer OTHER ==
[~2019-01-15] VITALS: Ht 149.9 cm; Wt 54.9 kg
[~2019-01-15 18:47] MED LIST changes: +CHLO25CA9 PO; -FER325 PO
[2019-01-15 19:03] VITALS: Ht 149.9 cm; Wt 54.9 kg
--- NOTE | 2019-01-16 03:18 | ERD ---
ER Documentation Chief Complaint Chief Complaint states been drinking etoh, c/o cp/sob HPI This is a 33-year-old female comes in with complaints of shortness of breath and chest pain after binge drinking. Patient has been here multiple times for similar complaints. Denies any abdominal pain. Denies any nausea vomiting. Upon arrival to the room, patient seems to be resting comfortably ROS All systems reviewed and are negative except as per history of present illness. Medications Home Meds Active Scripts Chlordiazepoxide* (Chlordiazepoxide*) 25 Mg Capsule, 25 MG PO Q8 PRN for CONTROL WITHDRAWAL SYMPTOMS, #10 CAP Prov:ABIGAIL JONES 01/09/19 Lorazepam* (Lorazepam*) 1 Mg Tablet, 1 MG PO Q8H PRN for ANXIETY, #15 TAB Prov:DEVYN CABAN DO 01/15/18 Discontinued Reported Medications Ferrous Sulfate* (Ferrous Sulfate*) 325 Mg Tabec, 325 MG PO DAILY, TAB 11/08/18 Discontinued Scripts Ondansetron (Ondansetron Odt) 4 Mg Tab.rapdis, 4 MG PO Q6H PRN for NAUSEA AND/OR VOMITING, #10 TAB Prov:STANLEY HERRERA MD 12/24/18 Cephalexin* (Keflex*) 500 Mg Capsule, 500 MG PO QID for 7 Days, CAP Prov:STANLEY HERRERA MD 12/24/18 Allergies Allergies: Coded Allergies: hydrocodone bit (Verified Allergy, Severe, 01/09/19) morphine (Verified Allergy, Intermediate, SOB , RASH, 01/09/19) PMhx/Soc History of Surgery: No Anesthesia Reaction: No Hx Neurological Disorder: No Hx Respiratory Disorders: No Hx Cardiac Disorders: No Hx Psychiatric Problems: Yes (anxiety, panic attack,ETOH abuse) Hx Miscellaneous Medical Probl: No Hx Alcohol Use: Yes (06/20/18 1500, relaps 01/08/19) Hx Substance Use: No Hx Tobacco Use: No Smoking Status: Never smoker Physical Exam Vitals Vital Signs Date Temp Pulse Resp B/P (MAP) Pulse Ox O2 O2 Flow FiO2 Time Delivery Rate 01/16/19 82 14 95/76 (82) 97 Room Air 02:20 01/15/19 97.9 80 18 122/70 96 Room Air 23:58 (87) 01/15/19 97.9 117 18 122/70 96 19:03 (87) Physical Exam Const: No acute distress Head: Atraumatic Eyes: Normal Conjunctiva ENT: Normal External Ears, Nose and Mouth. Neck: Full range of motion. No meningismus. Resp: Clear to auscultation bilaterally Cardio: Regular rate and rhythm, no murmurs Abd: Soft, non tender, non distended. Normal bowel sounds Skin: No petechiae or rashes Back: No midline or flank tenderness Ext: No cyanosis, or edema Neur: Awake and alert Psych: Normal Mood and Affect Results 24 hrs Laboratory Tests Test 01/16/19 01:54 01/16/19 02:00 POC Beta HCG, Qualitative NEGATIVE Ethyl Alcohol Level 193.0 mg/dl Procedures/MDM EKG: Rate/Rhythm: [Normal Sinus Rhythm] QRS, ST, T-waves: [No changes consistent w/ acute ischemia] Impression: [No evidence of ischemia or arrhythmia] Chest X-ray 1V Interpreted by me: Soft Tissue: No acute abnormalitie s Bones: No acute abnormalities Mediastinum/Cardiac Silhouette/Lungs: [No acute abnormalities] Patient's thoracic symptoms have stabilized while in the department and are stable for outpatient follow up. Exam and work up not consistent w/ ischemia, arrhythmia, PE or dissection. Departure Diagnosis: Primary Impression: Alcoholic intoxication Complication of substance-induced condition: uncomplicated Qualified Codes: F10.920 - Alcohol use, unspecified with intoxication, uncomplicated Condition: Stable Patient Instructions: Alcohol Intoxication ABIGAIL JONES Jan 16, 2019 03:18
[2019-01-16 03:26] VITALS: BP 110/80; PULSE 92; RESP 16
[2019-01-16] MEDS ORDERED: LORAZEPAM 1 MG TAB PO ONE (04:00)
== END 2019-01-16 04:10 | disposition home or self-care (01) ==
LOC: E/R 18:47
DX: F10.920 Alcohol use, unspecified with intoxication, uncomplicated (principal)
CPT/HCPCS: 71045; 80307; 81025; 93005; Z7502; Z7610

== ENCOUNTER 2019-01-23 21:19 | Emergency (ER) | payer OTHER ==
[~2019-01-23] VITALS: Wt 54.9 kg
[2019-01-24] MEDS ORDERED: SOD CHLORIDE 0.9% 1,000 ML IV STA (02:17)
[2019-01-24] MEDS ORDERED: ONDANSETRON 4 MG INJ IV STA (02:17)
[2019-01-24] MEDS ORDERED: LORAZEPAM 2 MG INJ IV ONE (02:30)
[2019-01-24 03:42] VITALS: BP 98/62; PULSE 88; RESP 16
--- NOTE | 2019-01-24 03:52 | ERD ---
ER Documentation Chief Complaint Chief Complaint ETOH HPI This is a 33-year-old female who is here for alcohol abuse. The patient says she has been on a binge drinking 30 beers over the past 2 days she says she has an alcohol problem off and on. The patient states she was vomiting this morning is nonbilious nonbloody and says she feels bad like she has a hangover and she is concerned she can go into withdrawal and she is here for some Ativan she states. She has no chest pain shortness of breath headache falls neurological complaints ROS All systems reviewed and are negative except as per history of present illness. Medications Home Meds Active Scripts Lorazepam* (Lorazepam*) 1 Mg Tablet, 1 MG PO Q8H PRN for ANXIETY, #15 TAB Prov:DEVYN CABAN DO 01/15/18 Discontinued Scripts Chlordiazepoxide* (Chlordiazepoxide*) 25 Mg Capsule, 25 MG PO Q8 PRN for CONTROL WITHDRAWAL SYMPTOMS, #10 CAP Prov:ABIGAIL JONES 01/09/19 Allergies Allergies: Coded Allergies: hydrocodone bit (Verified Allergy, Intermediate, 01/24/19) morphine (Verified Allergy, Intermediate, SOB , RASH, 01/09/19) PMhx/Soc Medical and Surgical Hx: pt denies Surgical Hx History of Surgery: No Anesthesia Reaction: No Hx Neurological Disorder: No Hx Respiratory Disorders: No Hx Cardiac Disorders: No Hx Psychiatric Problems: Yes (anxiety, panic attack,ETOH abuse) Hx Miscellaneous Medical Probl: No Hx Alcohol Use: Yes Hx Substance Use: No Hx Tobacco Use: No Smoking Status: Unknown if ever smoked FmHx Family History: No coronary disease Physical Exam Vitals Vital Signs Date Temp Pulse Resp B/P (MAP) Pulse Ox O2 O2 Flow FiO2 Time Delivery Rate 01/24/19 88 16 98/62 (74) 96 Room Air 03:42 01/24/19 105 21 99/58 (72) 98 Room Air 01:57 01/23/19 97.9 70 18 114/72 98 22:13 (86) Physical Exam Const: Well-developed, well-nourished Head: Atraumatic, normocephalic Eyes: Normal Conjunctiva, PERRLA, EOMI, normal sclera, no nystagmus ENT: Normal External Ears, Nose and Mouth, moist mucus membranes. Neck: Full range of motion. No meningismus, no lymphadenopathy. Resp: Clear to auscultation bilaterally, no wheezing, rhonchi, rales Cardio: Regular rate and rhythm, no murmurs, S1 S2 present Abd: Soft, non tender x 4, non distended. Normal bowel sounds, no guarding or rebound, no pulsitile abdominal masses or bruits Skin: No petechiae or rashes, no ecchymosis , no maculopapular rash Back: No midline or flank tenderness Ext: No cyanosis, or edema, FROM x 4, normal inspection, neurovascularly intact x 4 Neur: Awake and alert, STR 5/5 x 4, sensation intact x 4, no focal findings, cerebellum intact Psych: Normal Mood and Affect Result Diagram: 01/24/1922501/24/19225 Results 24 hrs Laboratory Tests Test 01/24/19 02:26 White Blood Count 7.5 10^3/ul Red Blood Count 5.25 10^6/ul Hemoglobin 12.8 g/dl Hematocrit 40.9 % Mean Corpuscular Volume 77.9 fl Mean Corpuscular Hemoglobin 24.4 pg Mean Corpuscular Hemoglobin Concent 31.3 g/dl Red Cell Distribution Width 16.0 % Platelet Count 353 10^3/UL Mean Platelet Volume 9.7 fl Immature Granulocytes % 0.400 % Neutrophils % 47.6 % Lymphocytes % 45.8 % Monocytes % 4.4 % Eosinophils % 1.3 % Basophils % 0.5 % Nucleated Red Blood Cells % 0.0 /100WBC Immature Granulocytes # 0.030 10^3/ul Neutrophils # 3.5 10^3/ul Lymphocytes # 3.4 10^3/ul Monocytes # 0.3 10^3/ul Eosinophils # 0.1 10^3/ul Basophils # 0.0 10^3/ul Nucleated Red Blood Cells # 0.0 10^3/ul Sodium Level 143 mmol/L Potassium Level 4.2 mmol/L Chloride Level 102 mmol/L Carbon Dioxide Level 25 mmol/L Anion Gap 16 Blood Urea Nitrogen 5 mg/dl Creatinine 0.61 mg/dl Est Glomerular Filtrat Rate mL/min > 60 mL/min Glucose Level 98 mg/dl Calcium Level 9.4 mg/dl Total Bilirubin 0.3 mg/dl Direct Bilirubin 0.00 mg/dl Indirect Bilirubin 0.3 mg/dl Aspartate Amino Transf (AST/SGOT) 33 IU/L Alanine Aminotransferase (ALT/SGPT) 12 IU/L Alkaline Phosphatase 95 IU/L Total Protein 8.2 g/dl Albumin 4.7 g/dl Globulin 3.50 g/dl Albumin/Globulin Ratio 1.34 Current Medications Medications Dose Sig/Dayanna Start Time Status Last (Trade) Ordered Route PRN Stop Time Admin Dose Reason Admin Sodium 1,000 ml @ Q1H STAT 01/24/19 DC 01/24/19 Chloride 1,000 mls/hr IV 02:17 02:31 01/24/19 03:16 Ondansetron 4 mg ONCE STAT 01/24/19 DC 01/24/19 HCl (Zofran IV 02:17 02:32 Inj) 01/24/19 02:18 Lorazepam 1 mg ONCE ONCE 01/24/19 DC 01/24/19 (Ativan) IV 02:30 02:32 01/24/19 02:31 Procedures/MDM The patient received some IV fluids and Ativan she feels much better. Blood work looks unremarkable and stable. She is not any sign of alcohol withdrawal at this time. Discharge home with prescription for Ativan Departure Diagnosis: Primary Impression: Alcohol abuse Condition: Stable DEVYN CABAN DO Jan 24, 2019 03:52
[2019-01-24] MEDS ORDERED: LORA1TAB PO (03:53)
== END 2019-01-24 04:05 | disposition home or self-care (01) ==
LOC: E/R 21:19
DX: F10.10 Alcohol abuse, uncomplicated (principal)
CPT/HCPCS: 36415; 80053; 85025; 96374; 96375; J2060; J2405; J7030; Z7502

== ENCOUNTER 2019-01-30 11:43 | Emergency (ER) | payer OTHER ==
[~2019-01-30] VITALS: Ht 157.5 cm; Wt 52.9 kg
[~2019-01-30 11:43] MED LIST changes: -CHLO25CA9 PO
[2019-01-30 11:45] VITALS: Ht 157.5 cm; Wt 52.9 kg
[2019-01-30] MEDS ORDERED: LORA1TAB PO (14:20)
--- NOTE | 2019-01-30 14:31 | ERD ---
ER Documentation Chief Complaint Chief Complaint FEELING SHAKEY , SOB ,LAST DRINK TODAY @ 0700 HPI This is a 33-year-old female who is an alcoholic and states she is been drinking heavily for the past couple of days is here because she wants some IV fluids. She says her last drink was 7 AM today and she is not in withdrawal. She does have Ativan at home denies any nausea vomiting diarrhea or seizure or focal neurological complaints. She says she is just here because she wants IV fluids. ROS All systems reviewed and are negative except as per history of present illness. Medications Home Meds Active Scripts Lorazepam* (Lorazepam*) 1 Mg Tablet, 1 MG PO Q8H PRN for ANXIETY, #10 TAB Prov:LEKKOS,APOSTOLOS A. DO 01/30/19 Lorazepam* (Lorazepam*) 1 Mg Tablet, 1 MG PO Q8H PRN for ANXIETY, #10 TAB Prov:LEKKOS,APOSTOLOS A. DO 01/24/19 Lorazepam* (Lorazepam*) 1 Mg Tablet, 1 MG PO Q8H PRN for ANXIETY, #15 TAB Prov:LEKKOS,APOSTOLOS A. DO 01/15/18 Discontinued Scripts Chlordiazepoxide* (Chlordiazepoxide*) 25 Mg Capsule, 25 MG PO Q8 PRN for CONTROL WITHDRAWAL SYMPTOMS, #10 CAP Prov:ABIGAIL JONES 01/09/19 Allergies Allergies: Coded Allergies: hydrocodone bit (Verified Allergy, Intermediate, 01/24/19) morphine (Verified Allergy, Intermediate, SOB , RASH, 01/09/19) PMhx/Soc History of Surgery: No Anesthesia Reaction: No Hx Neurological Disorder: No Hx Respiratory Disorders: No Hx Cardiac Disorders: No Hx Psychiatric Problems: Yes (anxiety, panic attack,ETOH abuse) Hx Miscellaneous Medical Probl: No Hx Alcohol Use: Yes Hx Substance Use: No Hx Tobacco Use: No FmHx Family History: No coronary disease Physical Exam Vitals Vital Signs Date Temp Pulse Resp B/P (MAP) Pulse Ox O2 O2 Flow FiO2 Time Delivery Rate 01/30/19 97.9 118 18 136/83 97 11:45 (100) Physical Exam Const: Well-developed, well-nourished, smells like booze Head: Atraumatic, normocephalic Eyes: Normal Conjunctiva, PERRLA, EOMI, normal sclera, no nystagmus ENT: Normal External Ears, Nose and Mouth, moist mucus membranes. Neck: Full range of motion. No meningismus, no lymphadenopathy. Resp: Clear to auscultation bilaterally, no wheezing, rhonchi, rales Cardio: Regular rate and rhythm, no murmurs, S1 S2 present Abd: Soft, non tender x 4, non distended. Normal bowel sounds, no guarding or rebound, no pulsitile abdominal masses or bruits Skin: No petechiae or rashes, no ecchymosis , no maculopapular rash Back: No midline or flank tenderness Ext: No cyanosis, or edema, FROM x 4, normal inspection, neurovascularly intact x 4 Neur: Awake and alert, STR 5/5 x 4, sensation intact x 4, no focal findings, cerebellum intact Psych: Normal Mood and Affect Procedures/MDM Patient is not in acute withdrawal will give a liter of fluid and discharged home with Ativan Departure Diagnosis: Primary Impression: Alcohol intoxication Complication of substance-induced condition: uncomplicated Qualified Codes: F10.920 - Alcohol use, unspecified with intoxication, uncomplicated Condition: Stable Patient Instructions: Alcohol Intoxication Referrals: KARLEE PICHARDO (PCP) DEVYN CABAN DO Jan 30, 2019 14:31
[2019-01-30 16:34] VITALS: BP 123/62; PULSE 72; RESP 17
== END 2019-01-30 17:39 | disposition home or self-care (01) ==
LOC: E/R 11:43
DX: F10.920 Alcohol use, unspecified with intoxication, uncomplicated (principal)
CPT/HCPCS: 99283

== ENCOUNTER 2019-04-16 20:34 | Emergency (ER) | payer OTHER ==
[~2019-04-16] VITALS: Ht 149.9 cm; Wt 52.0 kg
[2019-04-16 20:45] VITALS: PULSE 128; Ht 149.9 cm; Wt 52.0 kg
[2019-04-16] MEDS ORDERED: SOD CHLORIDE 0.9% 1,000 ML IV STA (21:39)
[2019-04-16] MEDS ORDERED: LORAZEPAM 2 MG INJ IV STA (21:39)
[2019-04-17] MEDS ORDERED: CHLO25CA9 PO (00:10)
--- NOTE | 2019-04-17 00:13 | ERD ---
ER Documentation Chief Complaint Chief Complaint ETOH WITHDRAWL, STOPPED DRINKING 4 DAYS AGO HPI Is a 33-year female, with EtOH withdrawal. Patient states he stopped drinking 4 days ago. Alcohol levels have consistently checked to be positive when she is come in for withdrawal previously. Denies fevers or chills. Denies any other current issues. ROS All systems reviewed and are negative except as per history of present illness. Medications Home Meds Active Scripts Chlordiazepoxide* (Chlordiazepoxide*) 25 Mg Capsule, 25 MG PO Q8 PRN for CONTROL WITHDRAWAL SYMPTOMS, #20 CAP Prov:ABIGAIL JONES S. 04/17/19 Lorazepam* (Lorazepam*) 1 Mg Tablet, 1 MG PO Q8H PRN for ANXIETY, #10 TAB Prov:LEKKOS,APOSTOLOS A. DO 01/30/19 Lorazepam* (Lorazepam*) 1 Mg Tablet, 1 MG PO Q8H PRN for ANXIETY, #10 TAB Prov:LEKKOS,APOSTOLOS A. DO 01/24/19 Lorazepam* (Lorazepam*) 1 Mg Tablet, 1 MG PO Q8H PRN for ANXIETY, #15 TAB Prov:LEKKOS,APOSTOLOS A. DO 01/15/18 Allergies Allergies: Coded Allergies: hydrocodone bit (Verified Allergy, Intermediate, 01/24/19) morphine (Verified Allergy, Intermediate, SOB , RASH, 01/09/19) PMhx/Soc Medical and Surgical Hx: pt denies Surgical Hx History of Surgery: No Anesthesia Reaction: No Hx Neurological Disorder: No Hx Respiratory Disorders: No Hx Cardiac Disorders: No Hx Psychiatric Problems: Yes (anxiety, panic attack,ETOH abuse) Hx Miscellaneous Medical Probl: Yes (ALCOHOLISM) Hx Alcohol Use: Yes Hx Substance Use: No Hx Tobacco Use: Yes Smoking Status: Current every day smoker Physical Exam Vitals Vital Signs Date Temp Pulse Resp B/P (MAP) Pulse Ox O2 O2 Flow FiO2 Time Delivery Rate 04/16/19 98.7 128 20 121/70 97 20:45 (87) Physical Exam Const: No acute distress Head: Atraumatic Eyes: Normal Conjunctiva ENT: Normal External Ears, Nose and Mouth. Neck: Full range of motion. No meningismus. Resp: Clear to auscultation bilaterally Cardio: Regular rate and rhythm, no murmurs Abd: Soft, non tender, non distended. Normal bowel sounds Skin: No petechiae or rashes Back: No midline or flank tenderness Ext: No cyanosis, or edema Neur: Awake and alert Psych: Normal Mood and Affect Result Diagram: 04/16/19215104/16/192151 Results 24 hrs Laboratory Tests Test 04/16/19 21:37 04/16/19 21:52 04/16/19 21:54 Urine Color YELLOW Urine Clarity CLOUDY Urine pH 5.0 Urine Specific [place] 1.006 Urine Ketones NEGATIVE mg/dL Urine Nitrite NEGATIVE mg/dL Urine Bilirubin NEGATIVE mg/dL Urine Urobilinogen NEGATIVE mg/dL Urine Leukocyte Esterase TRACE Catherine/ul Urine Microscopic RBC 3 /HPF Urine Microscopic WBC 10 /HPF Urine Squamous Epithelial Cells MODERATE /HPF Urine Bacteria FEW /HPF Urine Hyaline Casts FEW /HPF Urine Mucus FEW /HPF Urine Hemoglobin 2+ mg/dL Urine Glucose NEGATIVE mg/dL Urine Total Protein 1+ mg/dl Urine Test NEGATIVE Urine Opiates Screen Negative Urine Barbiturates Negative Urine Amphetamines Screen Negative Urine Benzodiazepines Screen Negative Urine Cocaine Screen Negative Urine Cannabinoids Negative White Blood Count 7.6 10^3/ul Red Blood Count 5.29 10^6/ul Hemoglobin 13.0 g/dl Hematocrit 40.8 % Mean Corpuscular Volume 77.1 fl Mean Corpuscular Hemoglobin 24.6 pg Mean Corpuscular 31.9 g/dl Hemoglobin Concent Red Cell Distribution Width 13.9 % Platelet Count 296 10^3/UL Mean Platelet Volume 10.6 fl Immature Granulocytes % 0.400 % Neutrophils % 60.1 % Lymphocytes % 29.2 % Monocytes % 9.5 % Eosinophils % 0.1 % Basophils % 0.7 % Nucleated Red Blood Cells % 0.0 /100WBC Immature Granulocytes # 0.030 10^3/ul Neutrophils # 4.6 10^3/ul Lymphocytes # 2.2 10^3/ul Monocytes # 0.7 10^3/ul Eosinophils # 0.0 10^3/ul Basophils # 0.1 10^3/ul Nucleated Red Blood Cells # 0.0 10^3/ul Sodium Level 141 mmol/L Potassium Level 4.1 mmol/L Chloride Level 103 mmol/L Carbon Dioxide Level 24 mmol/L Anion Gap 14 Blood Urea Nitrogen 4 mg/dl Creatinine 0.58 mg/dl Est Glomerular Filtrat > 60 mL/min Rate mL/min Glucose Level 101 mg/dl Calcium Level 9.0 mg/dl Total Bilirubin 0.5 mg/dl Direct Bilirubin 0.00 mg/dl Indirect Bilirubin 0.5 mg/dl Aspartate Amino 25 IU/L Transf (AST/SGOT) Alanine 13 IU/L Aminotransferase (ALT/SGPT) Alkaline Phosphatase 117 IU/L Total Protein 8.2 g/dl Albumin 4.6 g/dl Globulin 3.60 g/dl Albumin/Globulin Ratio 1.27 Salicylates Level < 1.0 mg/dl Acetaminophen Level < 10.0 ug/ml Ethyl Alcohol Level 210.0 mg/dl Lipase 75 U/L Current Medications Medications Dose Sig/Dayanna Start Time Status Last (Trade) Ordered Route PRN Stop Time Admin Dose Reason Admin Sodium 1,000 ml @ Q1H STAT 04/16/19 DC 04/16/19 Chloride 1,000 mls/hr IV 21:39 21:58 04/16/19 22:38 Lorazepam 1 mg ONCE STAT 04/16/19 DC 04/16/19 (Ativan) IV 21:39 21:58 04/16/19 21:40 Procedures/MDM Medical decision making: This is a very pleasant patient comes in for alcohol withdrawal. At this point she has no evidence of withdrawal. She will be discharged home. As follow-up primary care physician and outpatient alcohol withdrawal cessation therapy. Departure Diagnosis: Primary Impression: Alcohol withdrawal syndrome Complication of substance-induced condition: uncomplicated Qualified Codes: F10.230 - Alcohol dependence with withdrawal, uncomplicated Condition: Stable Patient Instructions: Alcohol Withdrawal Referrals: GAVI FRANCISCO (PCP) ABIGAIL JONES April 17, 2019 00:13
[2019-04-17 00:47] VITALS: BP 133/89; RESP 20
== END 2019-04-17 00:48 | disposition home or self-care (01) ==
LOC: E/R 20:34
DX: F10.230 Alcohol dependence with withdrawal, uncomplicated (principal); F17.210 Nicotine dependence, cigarettes, uncomplicated
CPT/HCPCS: 36415; 80053; 80307; 81001; 83690; 84703; 85025; 96374; J2060; J7030; Z7502

== ENCOUNTER 2019-04-27 11:38 | Emergency (ER) | payer OTHER ==
[~2019-04-27] VITALS: Ht 157.5 cm; Wt 60.0 kg
[~2019-04-27 11:38] MED LIST changes: +CHLO25CA9 PO
[2019-04-27 12:02] VITALS: BP 111/66; PULSE 105; RESP 18; Ht 157.5 cm; Wt 60.0 kg
[2019-04-27] MEDS ORDERED: OMEP40CA6 PO (15:30)
[2019-04-27] MEDS ORDERED: LORA-444 PO (15:30)
--- NOTE | 2019-04-27 15:51 | ERD ---
ER Documentation Chief Complaint Chief Complaint ETOH relapsed c/o headace, CWP and N/V HPI 33-year-old female with a history of alcoholism presenting for complaints of withdrawal symptoms. She states that she feels shaky. Her last drink was last night. Of note, she was here on April 16 for similar symptoms but was noted to not be in withdrawal. She states that she was clean for 5 months, but relapsed 5 days ago. No palpitations, chest pain, shortness of breath. Complains of nausea without vomiting. ROS All systems reviewed and are negative except as per history of present illness. Medications Home Meds Reported Medications Omeprazole* (Omeprazole*) 40 Mg Capsule.dr, 40 MG PO DAILY, #30 CAP 04/27/19 Lorazepam* (Ativan*) 2 Mg Tablet, 1 MG PO BID PRN for ANXIETY, #30 TAB 04/27/19 Discontinued Scripts Chlordiazepoxide* (Chlordiazepoxide*) 25 Mg Capsule, 25 MG PO Q8 PRN for CONTROL WITHDRAWAL SYMPTOMS, #20 CAP Prov:ABIGAIL JONES 04/17/19 Lorazepam* (Lorazepam*) 1 Mg Tablet, 1 MG PO Q8H PRN for ANXIETY, #10 TAB Prov:LEKKOS,APOSTOLOS A. DO 01/30/19 Lorazepam* (Lorazepam*) 1 Mg Tablet, 1 MG PO Q8H PRN for ANXIETY, #10 TAB Prov:LEKKOS,APOSTOLOS A. DO 01/24/19 Lorazepam* (Lorazepam*) 1 Mg Tablet, 1 MG PO Q8H PRN for ANXIETY, #15 TAB Prov:LEKKOS,APOSTOLOS A. DO 01/15/18 Allergies Allergies: Coded Allergies: hydrocodone bit (Verified Allergy, Intermediate, 04/27/19) morphine (Verified Allergy, Intermediate, SOB , RASH, 04/27/19) PMhx/Soc Medical and Surgical Hx: pt denies Surgical Hx History of Surgery: No Anesthesia Reaction: No Hx Neurological Disorder: No Hx Respiratory Disorders: No Hx Cardiac Disorders: No Hx Psychiatric Problems: Yes (anxiety, panic attack,ETOH abuse) Hx Miscellaneous Medical Probl: Yes (ALCOHOLISM) Hx Alcohol Use: Yes Hx Substance Use: No Hx Tobacco Use: Yes Smoking Status: Current every day smoker FmHx Family History: No diabetes Physical Exam Vitals Vital Signs Date Temp Pulse Resp B/P (MAP) Pulse Ox O2 O2 Flow FiO2 Time Delivery Rate 04/27/19 97.8 105 18 111/66 97 12:02 (81) Physical Exam Const: No acute distress, sitting comfortably in bed, no diaphoresis Head: Atraumatic Eyes: Normal Conjunctiva ENT: Normal External Ears, Nose and Mouth. Neck: Full range of motion. No meningismus. Resp: No respiratory distress. Cardio: Regular rate and rhythm, no murmurs Abd: Soft, non tender, non distended. Normal bowel sounds Skin: No petechiae or rashes Back: No midline or flank tenderness Ext: No cyanosis, or edema Neur: Awake and alert, normal speech, no facial asymmetry, moving all extremities Psych: Normal Mood and Affect Procedures/MDM Patient has no signs of alcohol withdrawal at this time. I explained to her that it would be very dangerous if I gave her benzodiazepines if she is not acti vely withdrawing and starts drinking again. I recommended social work consult to discuss possible outpatient detox programs. Patient was agreeable to this. However when socially responsible investment adviser arrived to bedside, the patient and her mom had already left without discharge paperwork. Departure Diagnosis: Primary Impression: Alcohol abuse, episodic drinking behavior Condition: Stable Patient Instructions: Alcoholism: Getting Help, Alcohol Abuse SERGEI ROY MD April 27, 2019 15:51
== END 2019-04-27 17:10 | disposition home or self-care (01) ==
LOC: E/R 11:38
DX: F10.10 Alcohol abuse, uncomplicated (principal); F17.210 Nicotine dependence, cigarettes, uncomplicated
CPT/HCPCS: 99283

== ENCOUNTER 2019-05-05 17:58 | Emergency (ER) | payer OTHER ==
[~2019-05-05] VITALS: Ht 149.9 cm; Wt 51.3 kg
[~2019-05-05 17:58] MED LIST changes: -CHLO25CA9 PO; +LORA-444 PO; -LORA1TAB PO; +OMEP40CA6 PO
[2019-05-05 18:01] VITALS: Ht 149.9 cm; Wt 51.3 kg
[2019-05-05] MEDS ORDERED: LORAZEPAM 2 MG INJ IM ONE (22:00)
[2019-05-05] MEDS ORDERED: LORA1TAB PO (22:32)
--- NOTE | 2019-05-05 22:34 | ERD ---
ER Documentation Chief Complaint Chief Complaint TREMORS , SHAKEY , VOMITING X 3 DAYS , DRINKING X 4 DAYS HPI This is a 33-year-old female who is here because she is having some tremors from drinking alcohol. She says she was binge drinking for the past couple days since her last drink was this morning and this before coming in she is having some hand tremors so she wants to get "ahead of it" before she gets into withdrawal. She is having no nausea vomiting abdominal pain chest pain shortness of breath no seizure ROS All systems reviewed and are negative except as per history of present illness. Medications Home Meds Active Scripts Lorazepam* (Lorazepam*) 1 Mg Tablet, 1 MG PO Q8H PRN for ANXIETY, #10 TAB Prov:DEVYN CABAN DO 05/05/19 Reported Medications Omeprazole* (Omeprazole*) 40 Mg Capsule.dr, 40 MG PO DAILY, #30 CAP 04/27/19 Lorazepam* (Ativan*) 2 Mg Tablet, 1 MG PO BID PRN for ANXIETY, #30 TAB 04/27/19 Allergies Allergies: Coded Allergies: hydrocodone bit (Verified Allergy, Intermediate, 04/27/19) morphine (Verified Allergy, Intermediate, SOB , RASH, 04/27/19) PMhx/Soc Medical and Surgical Hx: pt denies Surgical Hx History of Surgery: No Anesthesia Reaction: No Hx Neurological Disorder: No Hx Respiratory Disorders: No Hx Cardiac Disorders: No Hx Psychiatric Problems: Yes (anxiety, panic attack,ETOH abuse) Hx Miscellaneous Medical Probl: Yes (ALCOHOLISM) Hx Alcohol Use: Yes Hx Substance Use: No Hx Tobacco Use: Yes Smoking Status: Smoker,current status unk FmHx Family History: No coronary disease Physical Exam Vitals Vital Signs Date Temp Pulse Resp B/P (MAP) Pulse Ox O2 O2 Flow FiO2 Time Delivery Rate 05/05/19 97.8 111 18 138/83 97 18:01 (101) Physical Exam Const: Well-developed, well-nourished Head: Atraumatic, normocephalic Eyes: Normal Conjunctiva, PERRLA, EOMI, normal sclera, no nystagmus ENT: Normal External Ears, Nose and Mouth, moist mucus membranes. Neck: Full range of motion. No meningismus, no lymphadenopathy. Resp: Clear to auscultation bilaterally, no wheezing, rhonchi, rales Cardio: Regular rate and rhythm, no murmurs, S1 S2 present Abd: Soft, non tender x 4, non distended. Normal bowel sounds, no guarding or rebound, no pulsitile abdominal masses or bruits Skin: No petechiae or rashes, no ecchymosis , no maculopapular rash Back: No midline or flank tenderness Ext: No cyanosis, or edema, FROM x 4, normal inspection, neurovascularly intact x 4 Neur: Awake and alert, STR 5/5 x 4, sensation intact x 4, no focal findings, cerebellum intact Psych: Normal Mood and Affect Results 24 hrs Laboratory Tests Test 05/05/19 21:17 POC Beta HCG, Qualitative NEGATIVE Current Medications Medications Dose Sig/Dayanna Start Time Status Last (Trade) Ordered Route PRN Stop Time Admin Dose Reason Admin Lorazepam 1 mg ONCE ONCE 05/05/19 DC 05/05/19 (Ativan) IM 22:00 05/05/19 21:38 22:01 Procedures/MDM Patient received some Ativan 1 mg IM and is feeling better. Discharge her home with Ativan p.o. Patient feels much better at this time, and vital signs are normal, symptoms have improved. I did give strict instructions to return to the ED if symptoms continue or worsen, patient will otherwise follow-up with primary care physician. Patient understood instructions and agreed to plan. Disclaimer: Inadvertent spelling and grammatical errors are likely due to EHR/dictation software use and do not reflect on the overall quality of patient care. Also, please note that the electronic time recorded on this note does not necessarily reflect the actual time of the patient encounter. Departure Diagnosis: Primary Impression: Alcohol withdrawal syndrome Complication of substance-induced condition: uncomplicated Qualified Codes: F10.230 - Alcohol dependence with withdrawal, uncomplicated Condition: Stable Patient Instructions: Alcohol Withdrawal Referrals: GAVI FRANCISCO (PCP) DEVYN CABAN DO May 05, 2019 22:34
[2019-05-05 22:40] VITALS: BP 113/75; PULSE 96; RESP 16
== END 2019-05-05 22:42 | disposition home or self-care (01) ==
LOC: E/R 17:58
DX: F10.230 Alcohol dependence with withdrawal, uncomplicated (principal); F17.210 Nicotine dependence, cigarettes, uncomplicated
CPT/HCPCS: 81025; 96372; J2060; Z7502

== ENCOUNTER 2019-06-03 20:02 | Emergency (ER) | payer OTHER ==
[~2019-06-03] VITALS: Ht 149.9 cm; Wt 50.7 kg
[~2019-06-03 20:02] MED LIST changes: +LORA1TAB PO
[2019-06-03 20:03] VITALS: Ht 149.9 cm; Wt 50.7 kg
[2019-06-03] MEDS ORDERED: ONDANSETRON 4 MG INJ IV STA (22:43)
[2019-06-03] MEDS ORDERED: SOD CHLORIDE 0.9% 1,000 ML IV STA (22:43)
[2019-06-03] MEDS ORDERED: LORAZEPAM 2 MG INJ IV ONE (23:00)
[2019-06-04] MEDS ORDERED: LORA1TAB PO (01:22)
--- NOTE | 2019-06-04 01:22 | ERD ---
ER Documentation Chief Complaint Chief Complaint Pt states she wants to stop drinking HPI Is a 33-year-old female is well-known to us comes in stating she wants stop drinking. She said she had a binge of alcohol drink over the past few days. Denies fevers chills nausea vomiting. She says she feels very tremulous. Denies any current complaints. ROS All systems reviewed and are negative except as per history of present illness. Medications Home Meds Active Scripts Lorazepam* (Lorazepam*) 1 Mg Tablet, 1 MG PO Q8H PRN for ANXIETY, #10 TAB Prov:VINCENT CABANJOSEDemetra RodríguezTommy DO 05/05/19 Reported Medications Omeprazole* (Omeprazole*) 40 Mg Capsule.dr, 40 MG PO DAILY, #30 CAP 04/27/19 Lorazepam* (Ativan*) 2 Mg Tablet, 1 MG PO BID PRN for ANXIETY, #30 TAB 04/27/19 Allergies Allergies: Coded Allergies: hydrocodone bit (Verified Allergy, Intermediate, 04/27/19) morphine (Verified Allergy, Intermediate, SOB , RASH, 04/27/19) PMhx/Soc Medical and Surgical Hx: pt denies Surgical Hx History of Surgery: No Anesthesia Reaction: No Hx Neurological Disorder: No Hx Respiratory Disorders: No Hx Cardiac Disorders: No Hx Psychiatric Problems: Yes (anxiety, panic attacks, ETOH abuse) Hx Miscellaneous Medical Probl: No Hx Alcohol Use: Yes Hx Substance Use: No Hx Tobacco Use: Yes Smoking Status: Current every day smoker Physical Exam Vitals Vital Signs Date Temp Pulse Resp B/P (MAP) Pulse Ox O2 O2 Flow FiO2 Time Delivery Rate 06/03/19 106 18 123/90 98 22:30 (101) 06/03/19 98.3 130 16 140/95 98 20:03 (110) Physical Exam Const: No acute distress Head: Atraumatic Eyes: Normal Conjunctiva ENT: Normal External Ears, Nose and Mouth. Neck: Full range of motion. No meningismus. Resp: Clear to auscultation bilaterally Cardio: Regular rate and rhythm, no murmurs Abd: Soft, non tender, non distended. Normal bowel sounds Skin: No petechiae or rashes Back: No midline or flank tenderness Ext: No cyanosis, or edema Neur: Awake and alert Psych: Normal Mood and Affect Result Diagram: 06/03/19 0207 06/03/19 2256 Results 24 hrs Laboratory Tests Test 06/03/19 22:56 White Blood Count 13.8 10^3/ul Red Blood Count 5.91 10^6/ul Hemoglobin 14.7 g/dl Hematocrit 45.3 % Mean Corpuscular Volume 76.6 fl Mean Corpuscular Hemoglobin 24.9 pg Mean Corpuscular Hemoglobin Concent 32.5 g/dl Red Cell Distribution Width 14.7 % Platelet Count 420 10^3/UL Mean Platelet Volume 9.8 fl Immature Granulocytes % 0.600 % Neutrophils % 61.2 % Lymphocytes % 31.9 % Monocytes % 5.6 % Eosinophils % 0.2 % Basophils % 0.5 % Nucleated Red Blood Cells % 0.0 /100WBC Immature Granulocytes # 0.080 10^3/ul Neutrophils # 8.5 10^3/ul Lymphocytes # 4.4 10^3/ul Monocytes # 0.8 10^3/ul Eosinophils # 0.0 10^3/ul Basophils # 0.1 10^3/ul Nucleated Red Blood Cells # 0.0 10^3/ul Urine Color YELLOW Urine Clarity CLEAR Urine pH 6.0 Urine Specific [place] 1.006 Urine Ketones NEGATIVE mg/dL Urine Nitrite NEGATIVE mg/dL Urine Bilirubin NEGATIVE mg/dL Urine Urobilinogen NEGATIVE mg/dL Urine Leukocyte Esterase NEGATIVE Catherine/ul Urine Microscopic RBC 1 /HPF Urine Microscopic WBC 0 /HPF Urine Squamous Epithelial Cells FEW /HPF Urine Hemoglobin NEGATIVE mg/dL Urine Glucose NEGATIVE mg/dL Urine Total Protein 1+ mg/dl Sodium Level 144 mmol/L Potassium Level 4.3 mmol/L Chloride Level 101 mmol/L Carbon Dioxide Level 29 mmol/L Anion Gap 14 Blood Urea Nitrogen 6 mg/dl Creatinine 0.61 mg/dl Est Glomerular Filtrat Rate mL/min > 60 mL/min Glucose Level 105 mg/dl Calcium Level 9.2 mg/dl Total Bilirubin 0.4 mg/dl Direct Bilirubin 0.00 mg/dl Indirect Bilirubin 0.4 mg/dl Aspartate Amino Transf (AST/SGOT) 21 IU/L Alanine Aminotransferase (ALT/SGPT) 9 IU/L Alkaline Phosphatase 98 IU/L Total Protein 8.3 g/dl Albumin 4.5 g/dl Globulin 3.80 g/dl Albumin/Globulin Ratio 1.18 Salicylates Level < 1.0 mg/dl Urine Opiates Screen Negative Acetaminophen Level < 10.0 ug/ml Urine Barbiturates Negative Urine Amphetamines Screen Negative Urine Benzodiazepines Screen Negative Urine Cocaine Screen Negative Urine Cannabinoids Negative Ethyl Alcohol Level 240.0 mg/dl Current Medications Medications Dose Sig/Dayanna Start Time Status Last (Trade) Ordered Route PRN Stop Time Admin Dose Reason Admin Sodium 1,000 ml @ Q1H STAT 06/03/19 DC 06/03/19 Chloride 1,000 mls/hr IV 22:43 06/03/19 23:08 23:42 Ondansetron 4 mg ONCE STAT 06/03/19 DC 06/03/19 HCl (Zofran IV 22:43 06/03/19 23:08 Inj) 22:45 Lorazepam 2 mg ONCE ONCE 06/03/19 DC 06/03/19 (Ativan) IV 23:00 06/03/19 23:08 23:01 Procedures/MDM Medical decision makin female here with alcohol intoxication and mild withdrawal. At this point she is clinically stable. Patient feels better after fluids and Ativan. She will be discharged home with short course of Ativan. She is been advised follow-up with treatment centers and given resources. Departure Diagnosis: Primary Impression: Alcohol withdrawal syndrome Complication of substance-induced condition: uncomplicated Qualified Codes: F10.230 - Alcohol dependence with withdrawal, uncomplicated Condition: Stable ABIGAIL JONES Jun 04, 2019 01:22
[2019-06-04 01:55] VITALS: BP 98/59; PULSE 93; RESP 18
== END 2019-06-04 02:16 | disposition home or self-care (01) ==
LOC: E/R 20:02
DX: F10.230 Alcohol dependence with withdrawal, uncomplicated (principal); F17.210 Nicotine dependence, cigarettes, uncomplicated; R07.9 Chest pain, unspecified
CPT/HCPCS: 36415; 80053; 80307; 81001; 85025; 93005; 96361; 96374; 96375; J2060; J2405; J7030; Z7502

== ENCOUNTER 2019-06-10 10:43 | Emergency (ER) | payer OTHER ==
[~2019-06-10] VITALS: Ht 152.4 cm; Wt 56.0 kg
[2019-06-10 10:48] VITALS: Ht 152.4 cm; Wt 56.0 kg
[2019-06-10] MEDS ORDERED: SOD CHLORIDE 0.9% 500 ML IV ONE (11:30)
[2019-06-10] MEDS ORDERED: LORAZEPAM 2 MG INJ IV ONE (11:30)
--- NOTE | 2019-06-10 11:37 | ERD ---
ER Documentation Chief Complaint Chief Complaint ETOH INTOXICATION, WANTS TO STOP,MEDS? HPI This is a 33-year-old female who is well-known to [facility] who presents for relapse of alcohol abuse. Patient states that her last drink was around 3 AM, she states that she has been on a 5-day binge. She denies fever, denies trauma. ROS All systems reviewed and are negative except as per history of present illness. Medications Home Meds Active Scripts Lorazepam* (Lorazepam*) 1 Mg Tablet, 1 MG PO Q8H PRN for ANXIETY, #10 TAB Prov:ABIGAIL JONES 06/04/19 Lorazepam* (Lorazepam*) 1 Mg Tablet, 1 MG PO Q8H PRN for ANXIETY, #10 TAB Prov:DEVYN CABAN DO 05/05/19 Reported Medications Omeprazole* (Omeprazole*) 40 Mg Capsule.dr, 40 MG PO DAILY, #30 CAP 04/27/19 Lorazepam* (Ativan*) 2 Mg Tablet, 1 MG PO BID PRN for ANXIETY, #30 TAB 04/27/19 Allergies Allergies: Coded Allergies: hydrocodone bit (Verified Allergy, Intermediate, 04/27/19) morphine (Verified Allergy, Intermediate, SOB , RASH, 04/27/19) PMhx/Soc History of Surgery: No Anesthesia Reaction: No Hx Neurological Disorder: No Hx Respiratory Disorders: No Hx Cardiac Disorders: No Hx Psychiatric Problems: Yes (anxiety, panic attacks, ETOH abuse) Hx Miscellaneous Medical Probl: No Hx Alcohol Use: Yes (ETOH abuse) Hx Substance Use: No Hx Tobacco Use: Yes Smoking Status: Current every day smoker Physical Exam Vitals Vital Signs Date Temp Pulse Resp B/P (MAP) Pulse Ox O2 O2 Flow FiO2 Time Delivery Rate 06/10/19 98.1 110 18 138/76 99 10:48 (96) Physical Exam Const: Well-developed, well-nourished, nontoxic Head: Atraumatic Eyes: Normal Conjunctiva ENT: Normal External Ears, Nose and Mouth. Neck: Full range of motion. No meningismus. Resp: Clear to auscultation bilaterally Cardio: Regular rate and rhythm, no murmurs Abd: Soft, non tender, non distended. Normal bowel sounds Skin: No petechiae or rashes Back: No midline or flank tenderness Ext: No cyanosis, or edema Neur: Awake and alert Psych: Normal Mood and Affect Results 24 hrs Current Medications Medications Dose Sig/Dayanna Start Time Status Last (Trade) Ordered Route PRN Stop Time Admin Dose Reason Admin Lorazepam 0.5 mg ONCE ONCE 06/10/19 (Ativan) IV 11:30 06/10/19 11:31 Sodium 500 ml @ Q1H ONCE 06/10/19 Chloride 500 mls/hr IV 11:30 06/10/19 12:29 Procedures/MDM This is a 33-year-old female who presents for evaluation of alcohol abuse. Patient has had multiple presentations for similar episodes, she is given a dose of Ativan and IV fluids. She states that she is currently in AA, had an extensive discussion with the spouse and patient, I offered social work, however she declined this. I advised that I did not recommend a Librium taper, given that she has had multiple relapses in the past, and combining benzodiazepines, was not advisable. Patient was agreeable to this, at discharge she was in no distress. Departure Diagnosis: Primary Impression: Alcohol abuse Condition: Stable STANLEY HERRERA MD Jun 10, 2019 11:29
[2019-06-10 12:30] VITALS: BP 108/81; PULSE 89; RESP 19
== END 2019-06-10 12:44 | disposition home or self-care (01) ==
LOC: E/R 10:43
DX: F10.10 Alcohol abuse, uncomplicated (principal); F17.210 Nicotine dependence, cigarettes, uncomplicated
CPT/HCPCS: 96361; 96374; J2060; J7040; Z7502

== ENCOUNTER 2019-06-29 12:48 | Emergency (ER) | payer OTHER ==
[~2019-06-29] VITALS: Ht 149.9 cm; Wt 48.9 kg
[~2019-06-29 12:48] MED LIST changes: -LORA-444 PO
[2019-06-29 13:09] VITALS: Ht 149.9 cm; Wt 48.9 kg
[2019-06-29] MEDS ORDERED: SOD CHLORIDE 0.9% 1,000 ML IV STA (14:46)
[2019-06-29] MEDS ORDERED: LORAZEPAM 2 MG INJ IV ONE (15:00)
[2019-06-29] MEDS ORDERED: FOLIC ACID 1 MG TAB PO ONE (15:00)
[2019-06-29] MEDS ORDERED: THIAMINE 100 MG TAB PO ONE (15:00)
--- NOTE | 2019-06-29 16:38 | ERD ---
ER Documentation Chief Complaint Chief Complaint ETOH INTOXICATION HPI 33-year-old female who states that she has been binge drinking for 1 week. She has a history of alcohol abuse. Her last drink was 4 PM yesterday. She is feeling slightly tremulous. She denies any abdominal pain fevers or chills chest pain or shortness of breath or falls or injuries. Patient is asking for some hydration and treatment for mild withdrawal syndrome. Patient has not had a history of seizure related to withdrawal. She goes to and does have a sponsor. ROS All systems reviewed and are negative except as per history of present illness. Medications Home Meds Active Scripts Lorazepam* (Lorazepam*) 1 Mg Tablet, 1 MG PO Q8H PRN for ANXIETY, #10 TAB Prov:ABIGAIL JONES 06/04/19 Reported Medications Omeprazole* (Omeprazole*) 40 Mg Capsule.dr, 40 MG PO DAILY, #30 CAP 04/27/19 Allergies Allergies: Coded Allergies: hydrocodone bit (Verified Allergy, Intermediate, 06/10/19) morphine (Verified Allergy, Intermediate, SOB , RASH, 06/10/19) PMhx/Soc History of Surgery: No Anesthesia Reaction: No Hx Neurological Disorder: No Hx Respiratory Disorders: No Hx Cardiac Disorders: No Hx Psychiatric Problems: Yes (anxiety, panic attacks, ETOH abuse) Hx Miscellaneous Medical Probl: No Hx Alcohol Use: Yes (ETOH abuse) Hx Substance Use: No Hx Tobacco Use: Yes Smoking Status: Current every day smoker FmHx Family History: No diabetes Physical Exam Vitals Vital Signs Date Temp Pulse Resp B/P (MAP) Pulse Ox O2 O2 Flow FiO2 Time Delivery Rate 06/29/19 98.7 98 17 112/75 98 Room Air 14:47 (87) 06/29/19 98.7 104 17 112/75 98 13:09 (87) Physical Exam General: Disheveled, no significant distress Head: Normocephalic, atraumatic. Eyes: Pupils equally reactive, EOM intact ENT: Moist mucous membranes Neck: Supple, no lymphadenopathy Respiratory: Lungs clear bilaterally, no distress Cardiovascular: RRR, no murmurs, rubs, or gallops Abdominal: Soft, non-tender, non-distended, no peritoneal signs : Deferred MSK: No edema, no unilateral swelling, 5/5 strength Neurologic: Alert and oriented, moving all extremities, normal speech, no focal weakness, no cerebellar signs Skin: No rash Psych: Normal mood Results 24 hrs Laboratory Tests Test 06/29/19 15:20 POC Beta HCG, Qualitative NEGATIVE Current Medications Medications Dose Sig/Dayanna Start Time Status Last (Trade) Ordered Route PRN Stop Time Admin Dose Reason Admin Sodium 1,000 ml @ Q1H STAT 06/29/19 DC 06/29/19 Chloride 1,000 mls/hr IV 14:46 06/29/19 15:25 15:45 Lorazepam 1 mg ONCE ONCE 06/29/19 DC 06/29/19 (Ativan) IV 15:00 06/29/19 15:25 15:01 Thiamine 100 mg ONCE ONCE 06/29/19 DC 06/29/19 HCl PO 15:00 06/29/19 15:25 (Vitamin B1) 15:01 Folic Acid 1 mg ONCE ONCE 06/29/19 DC 06/29/19 (Folic Acid) PO 15:00 06/29/19 15:25 15:01 Procedures/MDM MEDICAL DECISION MAKING: The patient's presentation is consistent with possible mild withdrawal syndrome. I believe the patient symptomatology is more consistent with anxiety and possibly dehydration. No evidence of alcoholic gastritis, alcoholic ketoacidosis. I do not believe laboratory testing will be helpful. No evidence of complication such as falls or injury or trauma. Patient has outpatient resources. ER COURSE: * Patient treated with IV fluids, Ativan, multivitamin. The patient is feeling better. Vital signs stable. Patient safe for discharge. She is not a good candidate for outpatient benzodiazepine therapy. CONSULTATION: None DISPOSITION PLAN: The patient does not have an identifiable emergent medical condition that warra nts inpatient hospitalization at this time. The patient is deemed safe for discharge with outpatient follow-up. We discussed follow up with the patient's primary care doctor within 24 to 48 hours as needed. We also discussed return to the emergency room for worsening symptoms or worsening condition. Outpatient referral: None required Discharge Medications: None required Departure Diagnosis: Primary Impression: Alcohol abuse Additional Impression: Dehydration, mild Condition: Stable Patient Instructions: Alcohol Abuse Referrals: GAVI FRANCISCO (PCP) Additional Instructions: Call your primary care doctor TOMORROW for an appointment during the next 1 WEEK.Tell the secretary specialist that you were referred from this facility.See the doctor sooner or return here if your condition worsens before your appointment time. MARINO LICEA MD Jun 29, 2019 16:38
[2019-06-29 17:18] VITALS: BP 118/68; PULSE 88; RESP 16
== END 2019-06-29 17:19 | disposition home or self-care (01) ==
LOC: E/R 12:48
DX: F10.10 Alcohol abuse, uncomplicated (principal); R40.2142 Coma scale, eyes open, spontaneous, at arrival to emergency department; R40.2362 Coma scale, best motor response, obeys commands, at arrival to emergency department; R40.2242 Coma scale, best verbal response, confused conversation, at arrival to emergency department; F17.210 Nicotine dependence, cigarettes, uncomplicated; E86.0 Dehydration
CPT/HCPCS: 81025; J2060; J7030; 96361; 96374

== ENCOUNTER 2019-07-07 12:58 | Emergency (ER) | payer OTHER ==
[~2019-07-07] VITALS: Wt 50.0 kg
[2019-07-07 13:03] VITALS: BP 118/81; PULSE 81; RESP 18
--- NOTE | 2019-07-07 13:37 | ERD ---
ER Documentation Chief Complaint Chief Complaint ETOH INTOXICATION, HPI 33-year-old female presents the emergency department with her mother intoxicated. Patient states she is been on a 5-day binge of alcohol. She presents multiple times to this emergency department for similar type complaints requesting Ativan and fluids. At this time she denies tremor or seizures. She arrives with her mother who states that the patient has been in and out of detox programs. ROS All systems reviewed and are negative except as per history of present illness. Medications Home Meds Active Scripts Lorazepam* (Lorazepam*) 1 Mg Tablet, 1 MG PO Q8H PRN for ANXIETY, #10 TAB Prov:ABIGAIL JONESTommy 06/04/19 Reported Medications Omeprazole* (Omeprazole*) 40 Mg Capsule.dr, 40 MG PO DAILY, #30 CAP 04/27/19 Allergies Allergies: Coded Allergies: hydrocodone bit (Verified Allergy, Intermediate, 06/10/19) morphine (Verified Allergy, Intermediate, SOB , RASH, 06/10/19) PMhx/Soc History of Surgery: No Anesthesia Reaction: No Hx Neurological Disorder: No Hx Respiratory Disorders: No Hx Cardiac Disorders: No Hx Psychiatric Problems: Yes (anxiety, panic attacks, ETOH abuse) Hx Miscellaneous Medical Probl: No Hx Alcohol Use: Yes (ETOH abuse) Hx Substance Use: No Hx Tobacco Use: Yes FmHx Supportive mother at bedside Physical Exam Vitals Vital Signs Date Temp Pulse Resp B/P (MAP) Pulse Ox O2 O2 Flow FiO2 Time Delivery Rate 07/07/19 98.1 81 18 118/81 99 13:03 (93) Physical Exam GENERAL: The patient is well developed and appropriate for usual state of health in no apparent distress. She is intoxicated HEENT: Pupils equal, round, and reactive to light. EOMI. There is no scleral icterus. NECK: C-spine is soft and supple, there is no meningismus. There is no cervical lymphadenopathy. LUNGS: Clear to auscultation bilaterally. There are no rales, wheezes or rhonchi. HEART: Regular rate and rhythm, no murmurs, clicks, rubs or gallops. ABDOMEN: Soft, non-tender, non-distended. There are bowel sounds in all four quadrants. No rebound or guarding. EXTREMITIES: There is no peripheral cyanosis or edema. No focal swelling or erythema. NEURO: The patient moves all four extremities with 5/5 strength. Cranial nerves II - XII are intact. Normal gait. Alert and oriented. Slurred speech. SKIN: There is no apparent rash or petechiae. HEME/LYMPHATIC: There is no evidence of excessive bruising or lymphedema. PSYCHIATRIC: The patient does not appear anxious or depressed. Procedures/MDM Patient was taken to a room, seen and examined Medical decision makin-year-old female with ongoing alcohol issues presents once again intoxicated. At this time she has no evidence of withdrawal, in fact she is clearly intoxicated at this time. She has no indications of clinical dehydration. She is not suicidal or homicidal. I have discussed with her mom the need for ongoing outpatient therapy and have provided referrals to the local community clinics. Overall, she is nontoxic and has a safe discharge with her mother. Departure Diagnosis: Primary Impression: Alcoholic intoxication Condition: Stable Patient Instructions: Alcohol Intoxication Referrals: [facility] ([facility]P) [facility] Usted se thomas hecho un examen mdico de control que le indica que no est en loreto condicin que requiera tratamiento urgente en el Departamento de Emergencia. Un estudio ms profundo y el tratamiento de diaz condicin pueden esperar sin ningn riesgo hasta que usted sea atendida/o en el consultorio de diaz mdico o loreto clnica. Es responsabilidad suya arreglar loreto emely para el seguimiento del roselyn. MANEJO DE CONDICIONES NO URGENTES EN EL FUTURO 1) Si usted tiene un mdico de atencin primaria: Usted debera llamar a diaz mdico de atencin primaria antes de venir al departamento de emergencia. Despus de las horas de consultorio, diaz doctor o diaz asociado/a est disponible por telfono. El mdico o enfermero de puneet en el servicio telefnico puede asesorarle por sharri medio para atender el problema, o roselyn contrario se puede programar loreto emely. 2) Si usted no tiene un mdico de atencin primaria: Llame al mdico o clnica de referencia que aparece abajo raul las horas de consultorio para hacer loreto emely para que le vean. CLINICAS: [facility] [phone] [facility] [phone] [facility] [phone] [place] [id number] [phone] [place] [id number] [phone] [facility]. [phone] MATT VELAZQUEZ Jul 07, 2019 13:37
== END 2019-07-07 13:59 | disposition home or self-care (01) ==
LOC: E/R 12:58
DX: F10.129 Alcohol abuse with intoxication, unspecified (principal); Z87.891 Personal history of nicotine dependence
CPT/HCPCS: 99282

== ENCOUNTER 2019-07-22 15:51 | Emergency (ER) | payer OTHER ==
[~2019-07-22] VITALS: Ht 149.9 cm; Wt 48.0 kg
[~2019-07-22 15:51] MED LIST changes: +RANI300T PO
[2019-07-22 15:54] VITALS: Ht 149.9 cm; Wt 48.0 kg
[2019-07-22] MEDS ORDERED: LORAZEPAM 1 MG TAB PO ONE (16:30)
[2019-07-22 18:20] VITALS: BP 129/66; PULSE 77; RESP 18
== END 2019-07-22 18:21 | disposition home or self-care (01) ==
LOC: E/R 15:51
DX: F10.920 Alcohol use, unspecified with intoxication, uncomplicated (principal)
CPT/HCPCS: 81025; Z7502; Z7610; 99283

== ENCOUNTER 2019-08-22 19:43 | Emergency (ER) | payer OTHER ==
[~2019-08-22] VITALS: Ht 149.9 cm; Wt 50.2 kg
[~2019-08-22 19:43] MED LIST changes: +CYCL10TA7 PO; +IBUP-1542 PO; +IBUP-1561 PO; -LORA1TAB PO; +OMEP20CA17 PO; +OMEP40CA38 PO; -OMEP40CA6 PO
[2019-08-22 20:19] VITALS: BP 122/68; PULSE 113; RESP 18; Ht 149.9 cm; Wt 50.2 kg
== END 2019-08-22 21:25 | disposition home or self-care (01) ==
LOC: E/R 19:43
DX: F10.920 Alcohol use, unspecified with intoxication, uncomplicated (principal); Z87.891 Personal history of nicotine dependence
CPT/HCPCS: 93005; Z7502